=== PATIENT | male | born 1970 | race African-American/Black ===

== ENCOUNTER 2020-01-16 22:55 | Emergency (ER) | payer BC ==
[2020-01-16] MEDS ORDERED: KETOROLAC 30 MG/ML INJ ONE (23:48)
--- NOTE | 2020-01-17 00:06 | ER ---
Nurse's Notes [facility] Name: Santos Thurman Jr Age: 49 yrs Sex: Male : 1970 Arrival Date: 01/16/2020 Time: 22:58 Bed 18 Private MD: Diagnosis: Rotator cuff tendinitis, left shoulder Presentation: 01/15 23:05 Chief complaint: Patient states: L shoulder pain with decreased ROM that began 2 days ss ago. No known injury. Coronavirus screen: Proceed with normal triage. Patient denies a cough. Patient denies shortness of breath or difficulty breathing. Patient denies measured and/or subjective temperature greater than 100.4F prior to today's visit. Patient denies travel on a cruise ship or to a country the [facility] currently lists as an affected area. Patient denies contact with known and/or suspected case of COVID-19. Ebola Screen: Patient denies exposure to infectious person. Patient denies travel to an Ebola-affected area in the 21 days before illness onset. Initial Sepsis Screen: Does the patient meet any 2 criteria? No. Patient's initial sepsis screen is negative. Does the patient have a suspected source of infection? No. Patient's initial sepsis screen is negative. Risk Assessment: Do you want to hurt yourself or someone else? Patient reports no desire to harm self or others. Onset of symptoms was January 14, 2020. 23:05 Method Of Arrival: Ambulatory ss 23:05 Acuity: JASMINE 4 ss Triage Assessment: 23:15 General: Appears in no apparent distress. uncomfortable, Behavior is calm, cooperative, vc appropriate for age. Pain: Complains of pain in left shoulder Pain does not radiate. Pain currently is 8 out of 10 on a pain scale. Quality of pain is described as sharp, stabbing, Pain began gradually, Is continuous, Alleviated by rest, Aggravated by repositioning. Historical: - Allergies: 23:07 No Known Allergies; ss - Home Meds: 23:07 None [Active]; ss - PMHx: 23:08 sickle cell trait; ss - PSHx: 23:07 None; ss - Immunization history:: Adult Immunizations unknown. - Social history:: Smoking status: Patient denies any tobacco usage or history of. - Family history:: not pertinent. - Hospitalizations: : No recent hospitalization is reported. Screenin:15 Abuse screen: Denies threats or abuse. Nutritional screening: No deficits noted. vc Tuberculosis screening: No symptoms or risk factors identified. Fall Risk None identified. Assessment: 23:15 General: Appears in no apparent distress. comfortable, Behavior is calm, cooperative, vc appropriate for age. Neuro: Level of Consciousness is awake, alert, obeys commands, Oriented to person, place, time, situation, Appropriate for age. Cardiovascular: Capillary refill < 3 seconds Patient's skin is warm and dry. Respiratory: Airway is patent Respiratory effort is even, unlabored, Respiratory pattern is regular, symmetrical. GI: No signs and/or symptoms were reported involving the gastrointestinal system. : No signs and/or symptoms were reported regarding the genitourinary system. Derm: Skin is intact, is healthy with good turgor, Skin temperature is warm. Musculoskeletal: Circulation, motion, and sensation intact. Range of motion: limited in left shoulder. 01/16 00:15 Reassessment: Patient appears in no apparent distress at this time. Patient and/or vc family updated on plan of care and expected duration. Pain level reassessed. Patient is alert, oriented x 3, equal unlabored respirations, skin warm/dry/pink. Patient states symptoms have not improved. Vital Signs: 07 23:05 BP 122 / 87; Pulse 75; Resp 16; Temp 97.7(TE); Pulse Ox 98% on R/A; Weight 87.54 kg; ss Height 5 ft. 6 in. (167.64 cm); Pain 8/10; 23:05 Body Mass Index 31.15 (87.54 kg, 167.64 cm) ED Course: 22:58 Patient arrived in ED. cf2 23:07 Triage completed. ss 23:08 Arm band placed on right wrist. ss 23:16 Abraham Otto MD is Attending Physician. rn 23:27 Semea Bailey RN is Primary Nurse. vc 23:58 Shoulder Left (2 View) XRAY In Process Unspecified. EDMS 01/16 00:30 Patient has correct armband on for positive identification. Bed in low position. Call vc light in reach. Pulse ox on. NIBP on. 00:30 No provider procedures requiring assistance completed. Patient did not have IV access vc during this emergency room visit. 00:34 Sling applied to left arm. vc Administered Medications: 07/05 23:47 Drug: TORadol 30 mg Route: IM; Site: right deltoid; vc 01/16 00:15 Follow up: Response: No adverse reaction vc Outcome: 00:05 Discharge ordered by . rn 00:33 Discharged to home ambulatory. vc 00:33 Condition: good 00:33 Discharge instructions given to patient, Instructed on discharge instructions, follow up and referral plans. Demonstrated understanding of instructions, follow-up care. 00:34 Patient left the ED. vc Signatures: Dispatcher [employer] EDAbraham Rouse MD MD rn Smirch, Shelby, RN RN Ines Hart cf2 Seema Bailey RN RN vc
--- NOTE | 2020-01-17 00:06 | EDPHYS ---
Physician Documentation [facility] Name: Santos Thurman Jr Age: 49 yrs Sex: Male : 1970 Arrival Date: 01/16/2020 Time: 22:58 Bed 18 Private MD: ED Physician Abraham Otto HPI: 01/15 23:48 This 49 yrs old Black Male presents to ER via Ambulatory with complaints of Shoulder rn Pain, Arm Pain. 23:48 The patient or guardian complains of pain, that is acute. rn 23:48 left shoulder. Onset: The symptoms/episode began/occurred 2 day(s) ago. Modifying rn factors: the symptoms are alleviated by remaining still, The symptoms are aggravated by lifting weight, movement, rotation of arm. Severity of symptoms: At their worst the symptoms were moderate, in the emergency department the symptoms are unchanged. The patient has not experienced similar symptoms in the past. 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 No fever. No skin changes. . Historical: - Allergies: 23:07 No Known Allergies; ss - Home Meds: 23:07 None [Active]; ss - PMHx: 23:08 sickle cell trait; ss - PSHx: 23:07 None; ss - Immunization history:: Adult Immunizations unknown. - Social history:: Smoking status: Patient denies any tobacco usage or history of. - Family history:: not pertinent. - Hospitalizations: : No recent hospitalization is reported. ROS: 23:48 Constitutional: Negative for fever, chills, and weight loss, Cardiovascular: Negative rn for chest pain, palpitations, and edema, MS/Extremity: + left shoulder pain Skin: Negative for injury, rash, and discoloration, Neuro: Negative for headache, weakness, numbness, tingling, and seizure. Exam: 23:48 Constitutional: This is a well developed, well nourished patient who is awake, alert, rn and in no acute distress. Skin: Warm, dry with normal turgor. Normal color with no rashes, no lesions, and no evidence of cellulitis. MS/ Extremity: Pulses equal, no cyanosis. Neurovascular intact. + painful rotation about shoulder, + tenderness bicipital groove, no bony tenderness or gross deformity. Vital Signs: 23:05 BP 122 / 87; Pulse 75; Resp 16; Temp 97.7(TE); Pulse Ox 98% on R/A; Weight 87.54 kg; ss Height 5 ft. 6 in. (167.64 cm); Pain 8/10; 23:05 Body Mass Index 31.15 (87.54 kg, 167.64 cm) ss MDM: 23:16 Patient medically screened. rn 01/16 00:02 Differential diagnosis: tendonitis. Data reviewed: vital signs, nurses notes, rn radiologic studies, plain films, and as a result, I will discharge patient. Test interpretation: by ED physician or midlevel provider: plain radiologic studies, Xray left shoulder neg for acute fracture/dislocation. Counseling: I had a detailed discussion with the patient and/or guardian regarding: the historical points, exam findings, and any diagnostic results supporting the discharge/admit diagnosis, radiology results, the need for outpatient follow up, to return to the emergency department if symptoms worsen or persist or if there are any questions or concerns that arise at home. Response to treatment: the patient's symptoms have mildly improved after treatment, and as a result, I will discharge patient. Special discussion: I discussed with the patient/guardian in detail that at this point there is no indication for admission to the hospital. It is understood, however, that if the symptoms persist or worsen the patient needs to return immediately for re-evaluation. ED course: Pt with signs and symptoms of rotator cuff tendinitis, recommend rest and OTC meds. . 01/15 23:10 Order name: Shoulder Left (2 View) XRAY kb 01/16 00:06 Order name: Zuri; Complete Time: 00:32 rn Administered Medications: 01/15 23:47 Drug: TORadol 30 mg Route: IM; Site: right deltoid; vc 01/16 00:15 Follow up: Response: No adverse reaction vc Disposition: 01/17/20 00:05 Discharged to Home. Impression: Rotator cuff tendinitis, left shoulder. - Condition is Stable. - Discharge Instructions: Rotator Cuff Tendinitis. - Medication Reconciliation Form, Thank You Letter, Antibiotic Education, Prescription Opioid Use, Work release form form. - Follow up: Private Physician; When: As needed; Reason: Recheck today's complaints, Re-evaluation by your physician. - Problem is new. - Symptoms have improved. Signatures: Dispatcher [employer] EDAbraham oRuse MD MD rn Smirch, Shelby, RN RN ss Calcote, Vanessa, RN RN vc Corrections: (The following items were deleted from the chart) 00:34 00:05 01/17/2020 00:05 Discharged to Home. Impression: Rotator cuff tendinitis, left vc shoulder. Condition is Stable. Forms are Medication Reconciliation Form, Thank You Letter, Antibiotic Education, Prescription Opioid Use. Follow up: Private Physician; When: As needed; Reason: Recheck today's complaints, Re-evaluation by your physician. Problem is new. Symptoms have improved. rn
[2020-01-17 00:39] VITALS: BP 122/87; TEMP 97.7; O2SAT 98
--- NOTE | 2020-01-17 08:42 | RAD REPORT ---
EXAM DESCRIPTION: RAD - Shoulder Left 2 View - 01/16/2020 11:56 pm CLINICAL HISTORY: PAIN COMPARISON: No comparisons FINDINGS: Mild AC joint degenerative changes. No fracture or dislocation. Area of sclerosis and luce ncy seen along the humeral head superiorly may indicate AVN.
== END 2020-01-17 00:34 | disposition home or self-care (01) ==
LOC: ER 22:55
DX: S46.011A Strain of muscle(s) and tendon(s) of the rotator cuff of right shoulder, initial encounter (principal)
CPT/HCPCS: 96372; 99284

== ENCOUNTER 2020-01-30 21:54 | Emergency (ER) | payer BC ==
[2020-01-30] MEDS ORDERED: IBUPROFEN 400 MG TAB ONE (22:45)
--- NOTE | 2020-01-30 23:54 | ER ---
Nurse's Notes [facility] Name: Santos Thurman Jr Age: 49 yrs Sex: Male : 1970 Arrival Date: 01/30/2020 Time: 22:11 Bed 5 Private MD: Diagnosis: Pain in right knee Presentation: 01/29 22:23 Chief complaint: Patient states: Right knee pain since Friday, no known trauma. + ll1 swelling. Coronavirus screen: Patient denies a cough. Patient denies shortness of breath or difficulty breathing. Patient denies measured and/or subjective temperature greater than 100.4F prior to today's visit. Patient denies travel on a cruise ship or to a country the [facility] currently lists as an affected area. Patient denies contact with known and/or suspected case of COVID-19. Proceed with normal triage. Ebola Screen: Patient denies travel to an Ebola-affected area in the 21 days before illness onset. Initial Sepsis Screen: Does the patient meet any 2 criteria? No. Patient's initial sepsis screen is negative. Risk Assessment: Do you want to hurt yourself or someone else? Patient reports no desire to harm self or others. Onset of symptoms was January 28, 2020. 22:23 Method Of Arrival: Wheelchair ll1 22:23 Acuity: JASMINE 4 ll1 22:29 Initial Sepsis Screen: Does the patient have a suspected source of infection? No. rv Patient's initial sepsis screen is negative. Historical: - Allergies: 22:25 No Known Allergies; ll1 - PMHx: 22:25 Sickle Cell Trait; ll1 - PSHx: 22:25 None; ll1 - Immunization history:: Adult Immunizations unknown. - Social history:: Smoking status: Patient reports the use of cigarette tobacco products, smokes one-half pack cigarettes per day, Patient/guardian denies using alcohol, street drugs. Screenin:29 Abuse screen: Denies threats or abuse. Denies injuries from another. Nutritional rv screening: No deficits noted. Tuberculosis screening: No symptoms or risk factors identified. Fall Risk None identified. Assessment: 22:27 General: Appears uncomfortable, Behavior is calm, cooperative. Pain: Complains of pain rv in right knee. Neuro: Level of Consciousness is awake, alert, obeys commands, Oriented to person, place, time, situation. Cardiovascular: Patient's skin is warm and dry. Respiratory: Airway is patent. Musculoskeletal: Circulation, motion, and sensation intact. Range of motion: limited in right knee Swelling present in right knee WARM TO TOUCH; (+) TENDERNESS. Vital Signs: 22:23 BP 137 / 91; Pulse 80; Resp 17; Temp 98.3; Pulse Ox 100% ; Pain 10/10; ll1 01/30 00:04 BP 128 / 89; Pulse 76; Resp 16; Temp 98; Pulse Ox 99% on R/A; rv ED Course: 01/29 22:11 Patient arrived in ED. cf2 22:13 Harlan Boland PA is PHCP. cp 22:13 Brenton Ferrer MD is Attending Physician. cp 22:23 Reid Henderson, SHANEL is Primary Nurse. rv 22:24 Triage completed. ll1 22:25 Arm band placed on Patient placed in an exam room, on a stretcher. ll1 22:29 Patient has correct armband on for positive identification. Pulse ox on. NIBP on. rv 22:56 XRAY Knee RIGHT 3 view In Process Unspecified. EDMS 01/30 00:03 Crutch training done. Je wrap to right knee. rv 00:03 No provider procedures requiring assistance completed. Patient did not have IV access rv during this emergency room visit. Administered Medications: 01/29 22:38 Drug: Ibuprofen 800 mg Route: PO; rv 01/30 00:02 Follow up: Response: Pain is unchanged, physician notified rv 00:02 Drug: [place] (7.5 mg-325 mg) 1 tabs {Note: RASS 0.} Route: PO; rv 00:02 Follow up: Response: Medication administered at discharge. rv Outcome: 01/29 23:53 Discharge ordered by . cp 01/30 00:03 Discharged to home via wheelchair, with crutches, with family. rv Condition: good Discharge instructions given to patient, Instructed on discharge instructions, follow up and referral plans. medication usage, crutch walking, Demonstrated understanding of instructions, follow-up care, medications, crutch walking, Prescriptions given X 2. 00:04 Patient left the ED. rv Signatures: Dispatcher [employer] EDLA Harlan Boland PA PA cp Reid Henderson, RN RN rv Ines Hart cf2 Alden Lopez, RN RN ll1
--- NOTE | 2020-01-30 23:54 | EDPHYS ---
Physician Documentation [facility] Name: Santos Thurman Jr Age: 49 yrs Sex: Male : 1970 Arrival Date: 01/30/2020 Time: 22:11 Bed 5 Private MD: ED Physician Brenton Ferrer HPI: 01/29 22:34 This 49 yrs old Black Male presents to ER via Wheelchair with complaints of Knee Pain. cp 22:35 The patient presents with pain, that is acute, swelling, tenderness. The complaints cp affect the medial aspect of right knee. Context: resulted from an unknown cause, the patient can partially bear weight, the patient is able to ambulate, with moderate difficulty, Problem is a result from a previous injury: No. Onset: The symptoms/episode began/occurred 2 day(s) ago. 22:35 Associated signs and symptoms: Pertinent negatives calf tenderness, fever, numbness, cp warmth. Treatment prior to arrival includes: no previous treatment. Historical: - Allergies: 22:25 No Known Allergies; ll1 - PMHx: 22:25 Sickle Cell Trait; ll1 - PSHx: 22:25 None; ll1 - Immunization history:: Adult Immunizations unknown. - Social history:: Smoking status: Patient reports the use of cigarette tobacco products, smokes one-half pack cigarettes per day, Patient/guardian denies using alcohol, street drugs. ROS: 22:40 Constitutional: Negative for body aches, chills, fever, poor PO intake. cp 22:40 Eyes: Negative for injury, pain, redness, and discharge. cp 22:40 Cardiovascular: Negative for chest pain. 22:40 Respiratory: Negative for cough, shortness of breath, wheezing. 22:40 Abdomen/GI: Negative for abdominal pain, nausea, vomiting, and diarrhea. 22:40 MS/extremity: Positive for pain, swelling, tenderness, of the right knee, Negative for decreased range of motion, deformity, paresthesias. 22:40 Skin: Negative for cellulitis, rash. 22:40 All other systems are negative. Exam: 22:45 Constitutional: The patient appears in no acute distress, alert, awake, non-toxic, well cp developed, well nourished. 22:45 Head/Face: Normocephalic, atraumatic. cp 22:45 Neck: ROM/movement: is normal, is supple, without pain, no range of motions limitations. 22:45 Cardiovascular: Rate: normal. 22:45 Respiratory: the patient does not display signs of respiratory distress, Respirations: normal, no use of accessory muscles. 22:45 Back: pain, is absent, ROM is normal. 22:45 Musculoskeletal/extremity: ROM: limited active range of motion due to pain, in the right knee, limited passive range of motion due to pain, in the right knee, Joints: All joints are normal except the medial aspect of right knee displays painful range of motion, swelling, tenderness. 22:45 Skin: cellulitis, is not appreciated, no rash present. Vital Signs: 22:23 BP 137 / 91; Pulse 80; Resp 17; Temp 98.3; Pulse Ox 100% ; Pain 10/10; ll1 01/30 00:04 BP 128 / 89; Pulse 76; Resp 16; Temp 98; Pulse Ox 99% on R/A; rv Procedures: 00:00 Splinting: Splint applied to right knee using knee immobilizer, applied by nurse. cp Examined by me, post splint application: neurovascular intact, Patient tolerated well. MDM: 01/29 22:16 Patient medically screened. cp 23:00 Differential diagnosis: dislocation, closed fracture, tendonitis. cp 23:52 Data reviewed: vital signs, nurses notes, radiologic studies, plain films. cp 23:52 Test interpretation: by ED physician or midlevel provider: xrays of right knee negative cp for fracture. Counseling: I had a detailed discussion with the patient and/or guardian regarding: the historical points, exam findings, and any diagnostic results supporting the discharge/admit diagnosis, radiology results, the need for outpatient follow up, a family practitioner, to return to the emergency department if symptoms worsen or persist or if there are any questions or concerns that arise at home. Response to treatment: the patient's symptoms have mildly improved after treatment, and as a result, I will discharge patient. 01/29 22:33 Order name: XRAY Knee RIGHT 3 view cp 01/30 00:03 Order name: Je Wrap; Complete Time: 00:03 rv 01/30 00:03 Order name: Crutches; Complete Time: 00:03 rv Administered Medications: 22:38 Drug: Ibuprofen 800 mg Route: PO; rv 07/20 00:02 Follow up: Response: Pain is unchanged, physician notified rv 00:02 Drug: [place] (7.5 mg-325 mg) 1 tabs {Note: RASS 0.} Route: PO; rv 00:02 Follow up: Response: Medication administered at discharge. rv Disposition: 00:10 Chart complete. cp 07:23 Co-signature as Attending Physician, Brenton Ferrer MD. [email or web address] Disposition: 01/30/20 23:53 Discharged to Home. Impression: Pain in right knee. - Condition is Stable. - Discharge Instructions: Knee Pain. - Prescriptions for Tramadol 50 mg Oral Tablet - take 1 tablet by ORAL route every 8 hours as needed; 12 tablet. Diclofenac Sodium 75 mg Oral Tablet, Delayed Release (E.C.) - take 1 tablet by ORAL route 2 times per day; 20 tablet. - Medication Reconciliation Form, Thank You Letter, Antibiotic Education, Prescription Opioid Use form. - Follow up: Private Physician; When: 2 - 3 days; Reason: Recheck today's complaints. - Problem is new. - Symptoms have improved. Signatures: Dispatcher [employer] EDMS Harlan Boland PA PA cp Reid Henderson RN RN Alden Lopez RN RN [facility] Brenton Ferrer MD MD [email or web address] Corrections: (The following items were deleted from the chart) 00:04 01/29 23:53 01/30/2020 23:53 Discharged to Home. Impression: Pain in right knee. rv Condition is Stable. Forms are Medication Reconciliation Form, Thank You Letter, Antibiotic Education, Prescription Opioid Use. Follow up: Private Physician; When: 2 - 3 days; Reason: Recheck today's complaints. Problem is new. Symptoms have improved. cp 01/30 11:17 01/29 23:00 Splinting: Splint applied to right knee using knee immobilizer, applied by cp nurse. Examined by me, post splint application: neurovascular intact, Patient tolerated well, cp
[2020-01-30] MEDS ORDERED: HYDROCODONE/APAP 7.5/325 MG TAB ONE (23:57)
[2020-01-31 00:43] VITALS: BP 128/89; TEMP 98; O2SAT 99
--- NOTE | 2020-01-31 08:14 | RAD REPORT ---
EXAM DESCRIPTION: RAD - Knee Right 3 View - 01/30/2020 10:55 pm CLINICAL HISTORY: Right knee pain FINDINGS: No fracture or dislocation is seen. Mild joint space narrowing medial compartment Moderate joint effusion present Mildly heterogeneous appearance involving the distal femur may be related to sickle cell. Follow-up x -ray in 2 months recommended for re-evaluation
== END 2020-01-31 00:04 | disposition home or self-care (01) ==
LOC: ER 21:54
DX: M25.561 Pain in right knee (principal); F17.210 Nicotine dependence, cigarettes, uncomplicated
CPT/HCPCS: 99284

== ENCOUNTER 2020-03-07 11:30 | Emergency (ER) | payer BC ==
[2020-03-07] MEDS ORDERED: IBUPROFEN 400 MG TAB ONE (12:21)
--- NOTE | 2020-03-07 12:32 | RAD REPORT ---
EXAM DESCRIPTION: RAD - Knee Left 3 View - 03/07/2020 12:23 pm CLINICAL HISTORY: Left knee pain FINDINGS: No fracture or dislocation is seen. Moderate joint effusion suspected Mild medial joint space narrowing 18 millimeter vague area sclerosis within the proximal tibia likely benign. It is recommended that th e patient have followup knee x-ray in 3 months to assess stability
--- NOTE | 2020-03-07 13:19 | EDPHYS ---
Physician Documentation [facility] Name: Santos Thurman Jr Age: 49 yrs Sex: Male : 1970 Arrival Date: 03/07/2020 Time: 11:35 Bed 8 Private MD: ED Physician Harlan Pelaez HPI: 03/07 13:12 This 49 yrs old Black Male presents to ER via Wheelchair with complaints of Knee Pain. anny 13:12 The patient presents with decreased range of motion, pain, swelling, tenderness. The anny complaints affect the left knee. Context: The problem was sustained at an unknown site, resulted from an unknown cause, the patient can partially bear weight. Onset: The symptoms/episode began/occurred 2 day(s) ago. Modifying factors: The symptoms are alleviated by elevating leg, remaining still, the symptoms are aggravated by movement, weight bearing, bending knee. Associated signs and symptoms: The patient has no apparent associated signs or symptoms. Treatment prior to arrival includes: no previous treatment, over the counter medications. Severity of symptoms: At their worst the symptoms were moderate, in the emergency department the symptoms are unchanged. The patient has experienced similar episodes in the past, a few times. Historical: - Allergies: 11:39 No Known Allergies; ll1 - PMHx: 11:39 Sickle Cell Trait; ll1 - PSHx: 11:39 None; ll1 - Immunization history:: Flu vaccine is not up to date. - Social history:: Smoking status: Patient reports the use of cigarette tobacco products, denies chronic smoking, but will smoke occasionally, Patient/guardian denies using alcohol, street drugs. - Family history:: not pertinent. ROS: 13:12 Constitutional: Negative for fever, chills, and weight loss, Eyes: Negative for injury, anny pain, redness, and discharge, ENT: Negative for injury, pain, and discharge, Neck: Negative for injury, pain, and swelling, Cardiovascular: Negative for chest pain, palpitations, and edema, Respiratory: Negative for shortness of breath, cough, wheezing, and pleuritic chest pain, Abdomen/GI: Negative for abdominal pain, nausea, vomiting, diarrhea, and constipation, Back: Negative for injury and pain, : Negative for injury, bleeding, discharge, and swelling, Skin: Negative for injury, rash, and discoloration, Neuro: Negative for headache, weakness, numbness, tingling, and seizure, Psych: Negative for depression, anxiety, suicide ideation, homicidal ideation, and hallucinations, Allergy/Immunology: Negative for hives, rash, and allergies, Endocrine: Negative for neck swelling, polydipsia, polyuria, polyphagia, and marked weight changes, Hematologic/Lymphatic: Negative for swollen nodes, abnormal bleeding, and unusual bruising. 13:12 MS/extremity: Positive for decreased range of motion, pain, swelling, tenderness, of the left knee. Exam: 13:12 Constitutional: This is a well developed, well nourished patient who is awake, alert, anny and in no acute distress. Head/Face: Normocephalic, atraumatic. Eyes: Pupils equal round and reactive to light, extra-ocular motions intact. Lids and lashes normal. Conjunctiva and sclera are non-icteric and not injected. Cornea within normal limits. Periorbital areas with no swelling, redness, or edema. ENT: Nares patent. No nasal discharge, no septal abnormalities noted. Tympanic membranes are normal and external auditory canals are clear. Oropharynx with no redness, swelling, or masses, exudates, or evidence of obstruction, uvula midline. Mucous membranes moist. Neck: Trachea midline, no thyromegaly or masses palpated, and no cervical lymphadenopathy. Supple, full range of motion without nuchal rigidity, or vertebral point tenderness. No Meningismus. Chest/axilla: Normal chest wall appearance and motion. Nontender with no deformity. No lesions are appreciated. Cardiovascular: Regular rate and rhythm with a normal S1 and S2. No gallops, murmurs, or rubs. Normal PMI, no JVD. No pulse deficits. Respiratory: Lungs have equal breath sounds bilaterally, clear to auscultation and percussion. No rales, rhonchi or wheezes noted. No increased work of breathing, no retractions or nasal flaring. Abdomen/GI: Soft, non-tender, with normal bowel sounds. No distension or tympany. No guarding or rebound. No evidence of tenderness throughout. Back: No spinal tenderness. No costovertebral tenderness. Full range of motion. Male : Normal genitalia with no discharge or lesions. Skin: Warm, dry with normal turgor. Normal color with no rashes, no lesions, and no evidence of cellulitis. Neuro: Awake and alert, GCS 15, oriented to person, place, time, and situation. Cranial nerves II-XII grossly intact. Motor strength 5/5 in all extremities. Sensory grossly intact. Cerebellar exam normal. Normal gait. Psych: Awake, alert, with orientation to person, place and time. Behavior, mood, and affect are within normal limits. 13:12 Musculoskeletal/extremity: ROM: limited active range of motion, limited passive range of motion, Circulation is intact in all extremities. Sensation intact. Compartment Syndrome exam of affected extremity: is normal. Joints: effusion, painful range of motion, swelling, Weight bearing: DVT Exam: negative Homans' sign noted on exam, no appreciated bluish discoloration, no erythema, no increased warmth, pain, swelling, tenderness. Vital Signs: 11:40 BP 120 / 73; Pulse 85; Resp 17; Temp 98.9; Pulse Ox 100% ; Weight 87.54 kg; Height 5 ll1 ft. 6 in. (167.64 cm); Pain 10/10; 13:35 BP 125 / 86; Pulse 82; Resp 18; Temp 97.9(O); Pulse Ox 100% on R/A; mh5 14:34 BP 129 / 84; Pulse 78; Resp 18; Temp 97.9; Pulse Ox 100% on R/A; ph 11:40 Body Mass Index 31.15 (87.54 kg, 167.64 cm) ll1 Procedures: 13:22 Joint Treatment: Aspiration of left using 18 gauge needle, Lidocaine, Removed clear anny fluid, yellow fluid, Dressed with band aid, Neosporin, Patient tolerated well. MDM: 11:43 Patient medically screened. anny 13:16 Data reviewed: vital signs, nurses notes, radiologic studies, plain films. anny 13:20 Differential diagnosis: closed fracture, contusion, tendonitis. Data interpreted: city hospital manager monitoring: not applicable for this patient encounter. Pulse oximetry: on room air is 100 %. Test interpretation: by ED physician or midlevel provider: plain radiologic studies. Counseling: I had a detailed discussion with the patient and/or guardian regarding: the historical points, exam findings, and any diagnostic results supporting the discharge/admit diagnosis, the need for outpatient follow up, for definitive care, a orthopedic surgeon. Medication response: ibuprofen administration has improved the patient's pain, norco . Response to treatment: the patient's symptoms have markedly improved after treatment, patient is well hydrated. Other consultation: follow up dr hurst. 03/07 13:28 Order name: Fluid Cell Count,Body bd 03/07 13:28 Order name: Crystals, Fluid bd 03/07 13:35 Order name: Miscellaneous Test Lab [facility] 03/07 13:35 Order name: Body Fluid Culture [facility] 03/07 11:57 Order name: Knee Left [facility] 03/07 11:57 Order name: Ice pack; Complete Time: 12:21 [facility] 03/07 13:12 Order name: Knee Immobilizer; Complete Time: 13:26 [facility] 03/07 13:12 Order name: Crutches; Complete Time: 13:26 [facility] 03/07 13:24 Order name: Wound dressing; Complete Time: 14:14 [facility] Administered Medications: 12:21 Drug: Motrin 800 mg Route: PO; ph 13:06 Follow up: Response: No adverse reaction ph 13:26 Drug: [place] 10 mg-325 mg 1 tabs Route: PO; em 14:14 Follow up: Response: No adverse reaction; Pain is decreased ph 13:55 Drug: Lidocaine-Epinephrine -2 % (1:100,000) 10 ml Route: Infiltration; ph 14:41 Follow up: Response: No adverse reaction ph 14:15 Drug: KeFLEX 500 mg Route: PO; ph 14:39 Follow up: Response: No adverse reaction ph Disposition: 03/07/20 13:19 Discharged to Home. Impression: Effusion, left knee, Pain in left knee. - Condition is Stable. - Discharge Instructions: Joint Pain, Knee Effusion, Knee Arthrocentesis, Knee Pain, Cryotherapy, [id number], Knee Effusion, [id number], Cryotherapy. - Prescriptions for Keflex 500 mg Oral Capsule - take 1 capsule by ORAL route every 6 hours for 7 days; 28 capsule. Tylenol- Codeine #3 300-30 mg Oral Tablet - take 2 tablet by ORAL route every 6 hours As needed; 30 tablet. Motrin IB 200 mg Oral Tablet - take 1 tablet by ORAL route every 6 hours As needed as needed with food; 40 tablet. - Medication Reconciliation Form, Thank You Letter, Antibiotic Education, Prescription Opioid Use form. - Follow up: Private Physician; When: 2 - 3 days; Reason: Recheck today's complaints, Continuance of care, Re-evaluation by your physician. Follow up: Clayton Hurst MD; When: 2 - 3 days; Reason: Recheck today's complaints, Continuance of care, Re-evaluation by your physician. - Problem is new. - Symptoms have improved. Signatures: Dispatcher [employer] EDHarlan Barrios MD MD cha Munoz, Edgar RN RN Traci Carrington RN RN Alden Lopez RN RN ll1 Corrections: (The following items were deleted from the chart) 13:35 13:35 Gram Stain ordered. EDMD EDMS 14:27 13:28 LACTIC DEHYDROGENASE+C.LAB.BRZ ordered. [facility] EDMS 14:41 13:19 03/07/2020 13:19 Discharged to Home. Impression: Effusion, left knee; Pain in ph left knee. Condition is Stable. Forms are Medication Reconciliation Form, Thank You Letter, Antibiotic Education, Prescription Opioid Use. Follow up: Private Physician; When: 2 - 3 days; Reason: Recheck today's complaints, Continuance of care, Re-evaluation by your physician. Follow up: Clayton Hurst; When: 2 - 3 days; Reason: Recheck today's complaints, Continuance of care, Re-evaluation by your physician. Problem is new. Symptoms have improved. anny
--- NOTE | 2020-03-07 13:19 | ER ---
Nurse's Notes [facility] Name: Santos Thurman Jr Age: 49 yrs Sex: Male : 1970 Arrival Date: 03/07/2020 Time: 11:35 Bed 8 Private MD: Diagnosis: Effusion, left knee;Pain in left knee Presentation: 03/07 11:40 Chief complaint: Patient states: Left knee pain for 3 days. No trauma. No fever. ll1 Coronavirus screen: Client denies travel out of the [place] in the last 14 days. At this time, the client does not indicate any symptoms associated with coronavirus-19. Ebola Screen: Patient denies travel to an Ebola-affected area in the 21 days before illness onset. Risk Assessment: Do you want to hurt yourself or someone else? Patient reports no desire to harm self or others. Onset of symptoms was March 05, 2020. 11:40 Method Of Arrival: Wheelchair ll1 11:40 Acuity: JASMINE 4 ll1 12:23 Initial Sepsis Screen: Does the patient meet any 2 criteria? No. Patient's initial ph sepsis screen is negative. Does the patient have a suspected source of infection? No. Patient's initial sepsis screen is negative. Historical: - Allergies: 11:39 No Known Allergies; ll1 - PMHx: 11:39 Sickle Cell Trait; ll1 - PSHx: 11:39 None; ll1 - Immunization history:: Flu vaccine is not up to date. - Social history:: Smoking status: Patient reports the use of cigarette tobacco products, denies chronic smoking, but will smoke occasionally, Patient/guardian denies using alcohol, street drugs. - Family history:: not pertinent. Screenin:22 Abuse screen: Denies threats or abuse. Denies injuries from another. Nutritional ph screening: No deficits noted. Tuberculosis screening: No symptoms or risk factors identified. Fall Risk None identified. Assessment: 12:22 General: Appears in no apparent distress. comfortable, well groomed, Behavior is calm, ph cooperative, appropriate for age. Pain: Complains of pain in left knee. Neuro: Level of Consciousness is awake, alert, obeys commands, Oriented to person, place, time, situation. Cardiovascular: Capillary refill < 3 seconds in bilateral fingers toes Patient's skin is warm and dry. Respiratory: Airway is patent Respiratory effort is even, unlabored. Derm: Skin is intact, is healthy with good turgor, Skin is pink, warm \T\ dry. 13:27 Reassessment: Patient appears in no apparent distress at this time. will be discharged em after knee aspiration, pending procedure. 14:00 Reassessment: Patient appears in no apparent distress at this time. Patient and/or ph family updated on plan of care and expected duration. Pain level reassessed. Patient is alert, oriented x 3, equal unlabored respirations, skin warm/dry/pink. Dr Pelaez at bedside to drain fluid from L knee, sent to lab for testing per ERP. Vital Signs: 11:40 BP 120 / 73; Pulse 85; Resp 17; Temp 98.9; Pulse Ox 100% ; Weight 87.54 kg; Height 5 ll1 ft. 6 in. (167.64 cm); Pain 10/10; 13:35 BP 125 / 86; Pulse 82; Resp 18; Temp 97.9(O); Pulse Ox 100% on R/A; mh5 14:34 BP 129 / 84; Pulse 78; Resp 18; Temp 97.9; Pulse Ox 100% on R/A; ph 11:40 Body Mass Index 31.15 (87.54 kg, 167.64 cm) ll1 ED Course: 11:35 Patient arrived in ED. mr 11:41 Triage completed. ll1 11:41 Arm band placed on Patient placed in an exam room, on a stretcher. ll1 11:43 Harlan Pelaez MD is Attending Physician. anny 11:58 Traci Carrington RN is Primary Nurse. ph 12:23 Knee Left 3 View XRAY In Process Unspecified. EDMS 12:23 Patient has correct armband on for positive identification. Bed in low position. Call ph light in reach. Side rails up X 1. 12:29 No provider procedures requiring assistance completed. Patient did not have IV access ph during this emergency room visit. 13:17 Clayton Hurst MD is Referral Physician. anny 13:31 Crutch training done. Knee immobilizer applied on right knee. 5 14:00 Assist provider with aspiration of left knee using 18 gauge needle, Lidocaine, fluid ph removed was cloudy, yellow, Specimen sent to lab. Removed 60 ml's of fluid Set up for procedure. Performed by Harlan Pelaez MD Dressed with band aid, Patient tolerated well. Administered Medications: 12:21 Drug: Motrin 800 mg Route: PO; ph 13:06 Follow up: Response: No adverse reaction ph 13:26 Drug: [place] 10 mg-325 mg 1 tabs Route: PO; em 14:14 Follow up: Response: No adverse reaction; Pain is decreased ph 13:55 Drug: Lidocaine-Epinephrine -2 % (1:100,000) 10 ml Route: Infiltration; ph 14:41 Follow up: Response: No adverse reaction ph 14:15 Drug: KeFLEX 500 mg Route: PO; ph 14:39 Follow up: Response: No adverse reaction ph Outcome: 13:19 Discharge ordered by . [facility] 14:38 Discharged to home via wheelchair. ph 14:38 Condition: good 14:39 Discharge instructions given to patient, Instructed on discharge instructions, follow ph up and referral plans. medication usage, Demonstrated understanding of instructions, follow-up care, medications, Prescriptions given X 3. 14:41 Patient left the ED. ph Signatures: Dispatcher [employer] Harlan Leija MD MD cha Rivera, Mary Vic Saha, RN RN Traci Cross RN RN Yaritza Alvarez [facility] Alden Lopez RN RN ll1 Corrections: (The following items were deleted from the chart) 14:39 14:38 Discharged to home ambulatory, ph ph
[2020-03-07] MEDS ORDERED: HYDROCODONE/APAP 10/325 TAB ONE (13:28)
[2020-03-07] MEDS ORDERED: LIDOCAINE 1% W/EPI 1:100,000 MDV 20 ML VIAL ONE (13:32)
[2020-03-07] MEDS ORDERED: CEPHALEXIN 250 MG CAP ONE (13:50)
[2020-03-07 15:24] LABS: Body Fluid Source SYNOVIAL; Color of fluid Yellow (COLORLESS)
[2020-03-07 17:21] LABS: Body Fluid WBC 37806 /mm^3
[2020-03-07 17:28] LABS: Appearance VERY TURBID (CLEAR)
[2020-03-11 14:12] VITALS: O2SAT 100
[2020-03-11 14:14] VITALS: TEMP 97.9
[2020-03-11 14:16] VITALS: BP 129/84
== END 2020-03-07 14:41 | disposition home or self-care (01) ==
LOC: ER 11:30
PROC: 0S9D3ZZ Drainage of Left Knee Joint, Percutaneous Approach (ICD-10-PCS; principal; 2020-03-07)
DX: M25.562 Pain in left knee (principal); M25.462 Effusion, left knee; F17.210 Nicotine dependence, cigarettes, uncomplicated
CPT/HCPCS: 36415; 87070; 89050; 89060; 99284

== ENCOUNTER 2020-04-04 07:48 | Emergency (ER) | payer BC ==
--- NOTE | 2020-04-04 08:20 | EDPHYS ---
Physician Documentation [facility] Name: Santos Thurman Jr Age: 49 yrs Sex: Male : 1970 Arrival Date: 04/04/2020 Time: 07:50 Bed 6 Private MD: ED Physician Abraham Otto HPI: 04/04 08:15 This 49 yrs old Black Male presents to ER via Ambulatory with complaints of Hand Pain. rn 08:15 The patient or guardian reports pain. The complaints affect the right hand diffusely. rn Onset: The symptoms/episode began/occurred several months ago. Modifying factors: The symptoms are alleviated by nothing, the symptoms are aggravated by nothing. Severity of symptoms: At their worst the symptoms were moderate, in the emergency department the symptoms are unchanged. The patient has experienced similar episodes in the past. Reports happening on and off "for some time". Denies injury. Began happening again at work today, sent home after ibuprofen didn't help. Reports right handed, worse at nighttime. No fever or infectious symptoms. . Historical: - Allergies: 08:07 No Known Allergies; hb - PMHx: 08:07 Sickle Cell Trait; hb - PSHx: 08:07 None; hb - Immunization history:: Adult Immunizations up to date. - Social history:: Smoking status: Patient reports the use of cigarette tobacco products, denies chronic smoking, but will smoke occasionally. - Family history:: not pertinent. - Hospitalizations: : No recent hospitalization is reported. ROS: 08:15 Constitutional: Negative for fever, chills, and weight loss, Cardiovascular: Negative rn for chest pain, palpitations, and edema, Respiratory: Negative for shortness of breath, cough, wheezing, and pleuritic chest pain, Abdomen/GI: Negative for abdominal pain, nausea, vomiting, diarrhea, and constipation, MS/Extremity: Negative for injury and deformity, Neuro: Negative for headache, weakness, and seizure. Exam: 08:15 Constitutional: This is a well developed, well nourished patient who is awake, alert, rn and in no acute distress. MS/ Extremity: Pulses equal, no cyanosis. Neurovascular intact. Full, normal range of motion. Equal circumference. + worsening of symptoms with hyperflexion of right wrist. No erythema/warmth/wounds. Fingers not fusiform or painful ROM. Vital Signs: 08:05 BP 123 / 91; Pulse 89; Resp 16; Temp 97.8; Pulse Ox 100% ; Weight 88.45 kg; Height 5 hb ft. 6 in. (167.64 cm); Pain 9/10; 08:05 Body Mass Index 31.47 (88.45 kg, 167.64 cm) hb MDM: 08:01 Patient medically screened. rn 08:15 Differential diagnosis: carpal tunnel syndrome. Data reviewed: vital signs, nurses rn notes. 08:15 Counseling: I had a detailed discussion with the patient and/or guardian regarding: the rn historical points, exam findings, and any diagnostic results supporting the discharge/admit diagnosis, the need for outpatient follow up, to return to the emergency department if symptoms worsen or persist or if there are any questions or concerns that arise at home. Special discussion: I discussed with the patient/guardian in detail that at this point there is no indication for admission to the hospital. It is understood, however, that if the symptoms persist or worsen the patient needs to return immediately for re-evaluation. Based on the history and exam findings, there is no indication for further emergent testing or inpatient evaluation. I discussed with the patient/guardian the need to see the hand specialist for further evaluation of the symptoms. 04/04 08:20 Order name: Wrist Splint: cock-up wrist splint right wrist; Complete Time: 08:40 rn Administered Medications: 08:33 Drug: predniSONE 60 mg Route: PO; tw2 08:41 Follow up: Response: No adverse reaction tw2 08:33 Drug: [place] 10 mg-325 mg 1 tabs Route: PO; tw2 08:40 Follow up: Response: No adverse reaction tw2 08:41 Follow up: Response: No adverse reaction; RASS: Alert and Calm (0) tw2 Disposition: 04/04/20 08:19 Discharged to Home. Impression: Carpal tunnel syndrome, right upper limb. - Condition is Stable. - Discharge Instructions: Carpal Tunnel Syndrome, Wrist Splint. - Prescriptions for Medrol (David) 4 mg Oral Tablets, Dose Pack - take 1 tablet by ORAL route as directed - follow package instructions; 1 packet. - Medication Reconciliation Form, Thank You Letter, Antibiotic Education, Prescription Opioid Use form. - Follow up: Robert Singer MD; When: As needed; Reason: Recheck today's complaints, Re-evaluation by your physician. - Problem is an ongoing problem. - Symptoms have improved. Signatures: Abraham Otto MD MD rn Baxter, Heather, RN RN Dang Ramos RN RN tw2 Corrections: (The following items were deleted from the chart) 08:41 08:19 04/04/2020 08:19 Discharged to Home. Impression: Carpal tunnel syndrome, right tw2 upper limb. Condition is Stable. Forms are Medication Reconciliation Form, Thank You Letter, Antibiotic Education, Prescription Opioid Use. Follow up: Robert Singer; When: As needed; Reason: Recheck today's complaints, Re-evaluation by your physician. Problem is an ongoing problem. Symptoms have improved. rn
--- NOTE | 2020-04-04 08:20 | ER ---
Nurse's Notes [facility] Name: Santos Thurman Jr Age: 49 yrs Sex: Male : 1970 Arrival Date: 04/04/2020 Time: 07:50 Bed 6 Private MD: Diagnosis: Carpal tunnel syndrome, right upper limb Presentation: 04/04 08:05 Chief complaint: Right hand pain since last night. Denies injury. Coronavirus screen: hb At this time, the client does not indicate any symptoms associated with coronavirus-19. Ebola Screen: No symptoms or risks identified at this time. Initial Sepsis Screen: Does the patient meet any 2 criteria? No. Patient's initial sepsis screen is negative. Does the patient have a suspected source of infection? No. Patient's initial sepsis screen is negative. Risk Assessment: Do you want to hurt yourself or someone else? Patient reports no desire to harm self or others. Onset of symptoms was April 03, 2020. 08:05 Method Of Arrival: Ambulatory hb 08:05 Acuity: JASMINE 4 hb Triage Assessment: 08:05 General: Appears in no apparent distress. Behavior is calm, cooperative, appropriate tw2 for age. Historical: - Allergies: 08:07 No Known Allergies; hb - PMHx: 08:07 Sickle Cell Trait; hb - PSHx: 08:07 None; hb - Immunization history:: Adult Immunizations up to date. - Social history:: Smoking status: Patient reports the use of cigarette tobacco products, denies chronic smoking, but will smoke occasionally. - Family history:: not pertinent. - Hospitalizations: : No recent hospitalization is reported. Screenin:37 Abuse screen: Denies threats or abuse. Nutritional screening: No deficits noted. tw2 Tuberculosis screening: No symptoms or risk factors identified. Fall Risk None identified. Assessment: 08:04 Reassessment: provider at bedside at this time. tw2 08:05 General: Appears in no apparent distress. Behavior is calm, cooperative, appropriate tw2 for age. Pain: Complains of pain in right hand. Neuro: Level of Consciousness is awake, alert, obeys commands, Oriented to person, place, time, situation. Cardiovascular: Capillary refill < 3 seconds Patient's skin is warm and dry. Respiratory: Airway is patent Respiratory effort is even, unlabored, Respiratory pattern is regular, symmetrical. Derm: No signs and/or symptoms reported regarding the dermatologic system. Musculoskeletal: Circulation, motion, and sensation intact. Range of motion: intact in all extremities, Reports pain in right hand. 08:41 Reassessment: Patient appears in no apparent distress at this time. No changes from tw2 previously documented assessment. Patient and/or family updated on plan of care and expected duration. Pain level reassessed. Patient is alert, oriented x 3, equal unlabored respirations, skin warm/dry/pink. Vital Signs: 08:05 BP 123 / 91; Pulse 89; Resp 16; Temp 97.8; Pulse Ox 100% ; Weight 88.45 kg; Height 5 hb ft. 6 in. (167.64 cm); Pain 9/10; 08:05 Body Mass Index 31.47 (88.45 kg, 167.64 cm) hb ED Course: 07:50 Patient arrived in ED. ds1 08:01 Abraham Otto MD is Attending Physician. rn 08:03 Bed in low position. Call light in reach. Adult w/ patient. Pulse ox on. NIBP on. tw2 08:04 Dang Ramos RN is Primary Nurse. tw2 08:07 Triage completed. hb 08:07 Arm band placed on. EKG completed in triage. Results shown to MD. EKG completed in triage. Results shown to MD. 08:19 Robert Singer MD is Referral Physician. rn 08:41 No provider procedures requiring assistance completed. Patient did not have IV access tw2 during this emergency room visit. Administered Medications: 08:33 Drug: predniSONE 60 mg Route: PO; tw2 08:41 Follow up: Response: No adverse reaction tw2 08:33 Drug: [place] 10 mg-325 mg 1 tabs Route: PO; tw2 08:40 Follow up: Response: No adverse reaction tw2 08:41 Follow up: Response: No adverse reaction; RASS: Alert and Calm (0) tw2 Outcome: 08:19 Discharge ordered by . rn 08:41 Discharged to home ambulatory, with significant other. tw2 08:41 Condition: stable 08:41 Discharge instructions given to patient, significant other, Instructed on discharge instructions, follow up and referral plans. medication usage, Demonstrated understanding of instructions, follow-up care, medications, Prescriptions given X 1. 08:41 Patient left the ED. tw2 Signatures: Courtney Arenas ds1 Abraham Otto MD MD rn Halley Anderson, SHANEL RN hb Dang Ramos RN RN tw2
[2020-04-04] MEDS ORDERED: predniSONE 20 MG TAB ONE (08:40)
[2020-04-04] MEDS ORDERED: HYDROCODONE/APAP 10/325 TAB ONE (08:40)
[2020-04-04 08:47] VITALS: BP 123/91; TEMP 97.8; O2SAT 100
== END 2020-04-04 08:41 | disposition home or self-care (01) ==
LOC: ER 07:48
DX: G56.01 Carpal tunnel syndrome, right upper limb (principal); F17.210 Nicotine dependence, cigarettes, uncomplicated
CPT/HCPCS: 99283; J7512

== ENCOUNTER 2020-05-17 02:32 | Emergency (ER) | payer BC ==
--- NOTE | 2020-05-17 03:10 | ER ---
Nurse's Notes [facility] Name: Santos Thurman Jr Age: 49 yrs Sex: Male : 1970 Arrival Date: 05/17/2020 Time: 02:33 Bed 6 Private MD: Diagnosis: Pain in right shoulder;Strain of muscle(s) and tendon(s) of the rotator cuff of right shoulder Presentation: 05/17 02:52 Chief complaint: Patient states: right shoulder pain that started yesterday. Pt states wh Hx of torn rotator cuff on right shoulder. Coronavirus screen: Client denies travel out of the [place] in the last 14 days. At this time, the client does not indicate any symptoms associated with coronavirus-19. Ebola Screen: Patient negative for fever greater than or equal to 101.5 degrees Fahrenheit, and additional compatible Ebola Virus Disease symptoms Patient denies exposure to infectious person. Initial Sepsis Screen: Does the patient meet any 2 criteria? No. Patient's initial sepsis screen is negative. Does the patient have a suspected source of infection? No. Patient's initial sepsis screen is negative. Risk Assessment: Do you want to hurt yourself or someone else? Patient reports no desire to harm self or others. Onset of symptoms was May 17, 2020. 02:52 Method Of Arrival: Ambulatory 02:52 Acuity: JASMINE 4 Historical: - Allergies: 02:54 No Known Allergies; - Home Meds: 02:54 None [Active]; - PMHx: 02:54 Sickle Cell Trait; - PSHx: 02:54 None; - Immunization history:: Adult Immunizations not up to date. - Social history:: Smoking status: Patient reports the use of cigarette tobacco products, denies chronic smoking, but will smoke occasionally. - Family history:: not pertinent. Screenin:55 Abuse screen: Denies threats or abuse. Denies injuries from another. Nutritional screening: No deficits noted. Tuberculosis screening: No symptoms or risk factors identified. Fall Risk None identified. Assessment: 02:55 General: Appears in no apparent distress. uncomfortable, Behavior is calm, cooperative, wh appropriate for age. Pain: Complains of pain in right shoulder Pain does not radiate. Pain currently is 9 out of 10 on a pain scale. Pain began 1 day ago. Neuro: Level of Consciousness is awake, alert, obeys commands, Oriented to person, place, time, situation, Appropriate for age. Cardiovascular: Capillary refill < 3 seconds. Respiratory: Airway is patent Respiratory effort is even, unlabored, Respiratory pattern is regular, symmetrical. GI: Abdomen is flat, non-distended. : No signs and/or symptoms were reported regarding the genitourinary system. EENT: No signs and/or symptoms were reported regarding the EENT system. Derm: Skin is intact, is healthy with good turgor, Skin is pink, warm \T\ dry. normal. Musculoskeletal: Circulation, motion, and sensation intact. Range of motion: limited in right shoulder. Vital Signs: 02:42 BP 107 / 73; Pulse 65; Resp 19 S; Temp 98.5(O); Pulse Ox 100% on R/A; mw2 ED Course: 02:33 Patient arrived in ED. cl3 02:48 Randy Chang PA is PHCP. jr8 02:49 Harlan Pelaez MD is Attending Physician. anny 02:51 Rui New is Primary Nurse. 02:53 Triage completed. 02:57 Arm band placed on right wrist. wh 02:57 Patient has correct armband on for positive identification. Bed in low position. Call light in reach. Side rails up X 1. Pulse ox on. NIBP on. 03:09 Clayton Hurst MD is Referral Physician. anny 03:18 No provider procedures requiring assistance completed. Patient did not have IV access during this emergency room visit. 03:31 XRAY Shoulder RIGHT 2 view In Process Unspecified. EDMS Administered Medications: 03:10 Drug: TORadol 60 mg Route: IM; Site: right gluteus; 03:18 Follow up: Response: No adverse reaction 03:10 Drug: [place] 10 mg-325 mg 1 tabs Route: PO; 03:18 Follow up: Response: No adverse reaction Outcome: 03:09 Discharge ordered by . anny 03:18 Discharged to home ambulatory, with family. 03:18 Condition: stable 03:18 Discharge instructions given to patient, family, Instructed on discharge instructions, follow up and referral plans. no drinking with medication, no driving heavy equipment, medication usage, POC Demonstrated understanding of instructions, follow-up care, medications, splint care, POC Prescriptions given X 2. 03:26 Patient left the ED. Signatures: Dispatcher [employer] EDMS Harlan Pelaez MD MD cha Roszak, Josh, PA PA jr8 Rui New Tala Silva mw2 Yunier Lopez cl3 Corrections: (The following items were deleted from the chart) 02:57 02:55 Musculoskeletal: Circulation, motion, and sensation intact. [facility]
--- NOTE | 2020-05-17 03:11 | EDPHYS ---
Physician Documentation [facility] Name: Santos Thurman Jr Age: 49 yrs Sex: Male : 1970 Arrival Date: 05/17/2020 Time: 02:33 Bed 6 Private MD: SCOTT Physician Harlan Pelaez HPI: 05/17 03:00 This 49 yrs old Black Male presents to ER via Ambulatory with complaints of Shoulder anny Pain. 03:00 The patient or guardian complains of decreased range of motion, pain, tenderness. right anny shoulder. Context: The problem was sustained at work, at an unknown site, resulted from repetitive motion, The patient experiences decreased range of motion, The patient reports no obvious deformity. Onset: The symptoms/episode began/occurred just prior to arrival. Modifying factors: the symptoms are alleviated by remaining still, The symptoms are aggravated by movement, rotation of arm. Associated signs and symptoms: The patient has no apparent associated signs or symptoms. Severity of symptoms: At their worst the symptoms were moderate, in the emergency department the symptoms are unchanged. Treatment prior to arrival includes: no previous treatment. The patient has experienced similar episodes in the past. Historical: - Allergies: 02:54 No Known Allergies; - Home Meds: 02:54 None [Active]; - PMHx: 02:54 Sickle Cell Trait; - PSHx: 02:54 None; - Immunization history:: Adult Immunizations not up to date. - Social history:: Smoking status: Patient reports the use of cigarette tobacco products, denies chronic smoking, but will smoke occasionally. - Family history:: not pertinent. ROS: 03:00 Constitutional: Negative for fever, chills, and weight loss, Eyes: Negative for injury, anny pain, redness, and discharge, ENT: Negative for injury, pain, and discharge, Neck: Negative for injury, pain, and swelling, Cardiovascular: Negative for chest pain, palpitations, and edema, Respiratory: Negative for shortness of breath, cough, wheezing, and pleuritic chest pain, Abdomen/GI: Negative for abdominal pain, nausea, vomiting, diarrhea, and constipation, Back: Negative for injury and pain, : Negative for injury, bleeding, discharge, and swelling, Skin: Negative for injury, rash, and discoloration, Neuro: Negative for headache, weakness, numbness, tingling, and seizure, Psych: Negative for depression, anxiety, suicide ideation, homicidal ideation, and hallucinations, Allergy/Immunology: Negative for hives, rash, and allergies, Endocrine: Negative for neck swelling, polydipsia, polyuria, polyphagia, and marked weight changes, Hematologic/Lymphatic: Negative for swollen nodes, abnormal bleeding, and unusual bruising. 03:00 MS/extremity: Positive for decreased range of motion, pain, tenderness, of the anterior aspect of right shoulder and posterior aspect of right shoulder. Exam: 03:00 Constitutional: This is a well developed, well nourished patient who is awake, alert, anny and in no acute distress. Head/Face: Normocephalic, atraumatic. Eyes: Pupils equal round and reactive to light, extra-ocular motions intact. Lids and lashes normal. Conjunctiva and sclera are non-icteric and not injected. Cornea within normal limits. Periorbital areas with no swelling, redness, or edema. ENT: Nares patent. No nasal discharge, no septal abnormalities noted. Tympanic membranes are normal and external auditory canals are clear. Oropharynx with no redness, swelling, or masses, exudates, or evidence of obstruction, uvula midline. Mucous membranes moist. Neck: Trachea midline, no thyromegaly or masses palpated, and no cervical lymphadenopathy. Supple, full range of motion without nuchal rigidity, or vertebral point tenderness. No Meningismus. Chest/axilla: Normal chest wall appearance and motion. Nontender with no deformity. No lesions are appreciated. Cardiovascular: Regular rate and rhythm with a normal S1 and S2. No gallops, murmurs, or rubs. Normal PMI, no JVD. No pulse deficits. Respiratory: Lungs have equal breath sounds bilaterally, clear to auscultation and percussion. No rales, rhonchi or wheezes noted. No increased work of breathing, no retractions or nasal flaring. Abdomen/GI: Soft, non-tender, with normal bowel sounds. No distension or tympany. No guarding or rebound. No evidence of tenderness throughout. Back: No spinal tenderness. No costovertebral tenderness. Full range of motion. Male : Normal genitalia with no discharge or lesions. Skin: Warm, dry with normal turgor. Normal color with no rashes, no lesions, and no evidence of cellulitis. Neuro: Awake and alert, GCS 15, oriented to person, place, time, and situation. Cranial nerves II-XII grossly intact. Motor strength 5/5 in all extremities. Sensory grossly intact. Cerebellar exam normal. Normal gait. Psych: Awake, alert, with orientation to person, place and time. Behavior, mood, and affect are within normal limits. 03:00 Musculoskeletal/extremity: Extremities: noted in the anterior aspect of left shoulder and posterior aspect of left shoulder: decreased ROM, pain, tenderness, ROM: limited active range of motion, limited passive range of motion, Circulation is intact in all extremities. Sensation intact. Compartment Syndrome exam of affected extremity: is normal. no pain, no numbness, no tingling, no sensation deficit, no palor, no weak pulses, DVT Exam: no swelling, negative Homans' sign noted on exam, no appreciated bluish discoloration, no erythema, no increased warmth, pain, tenderness. Vital Signs: 02:42 BP 107 / 73; Pulse 65; Resp 19 S; Temp 98.5(O); Pulse Ox 100% on R/A; mw2 MDM: 02:48 Patient medically screened. jr8 02:49 Patient medically screened. anny 03:05 Differential diagnosis: Anterior dislocation without fracture, Posterior dislocation anyn without fracture, DJD, tendonitis. Data reviewed: vital signs, nurses notes, radiologic studies, plain films. Data interpreted: gambling monitor: rate is 65 beats/min, rhythm is regular, Pulse oximetry: on room air is 100 %. Test interpretation: by ED physician or midlevel provider: plain radiologic studies. Counseling: I had a detailed discussion with the patient and/or guardian regarding: the historical points, exam findings, and any diagnostic results supporting the discharge/admit diagnosis, radiology results, the need for outpatient follow up, for definitive care, a orthopedic surgeon. Medication response: Toradol markedly relieved the patient's pain. 05/17 02:52 Order name: XRAY Shoulder RIGHT 2 view 05/17 02:54 Order name: Ice pack; Complete Time: 03:13 anny 05/17 02:54 Order name: Sling; Complete Time: 03:13 anny Administered Medications: 03:10 Drug: TORadol 60 mg Route: IM; Site: right gluteus; 03:18 Follow up: Response: No adverse reaction 03:10 Drug: [place] 10 mg-325 mg 1 tabs Route: PO; 03:18 Follow up: Response: No adverse reaction Disposition: 05/17/20 03:09 Discharged to Home. Impression: Pain in right shoulder, Strain of muscle(s) and tendon(s) of the rotator cuff of right shoulder. - Condition is Stable. - Discharge Instructions: Joint Pain, Arthritis, Musculoskeletal Pain, Shoulder Pain, Cryotherapy, [id number], Shoulder Range of Motion Exercises, Shoulder Pain, Onzk-hr-Rbcm, Cryotherapy, Joint Pain, Kyip-yp-Hnqw. - Prescriptions for Ibuprofen 600 mg Oral Tablet - take 1 tablet by ORAL route every 6 hours As needed take with food; 20 tablet. Tylenol- Codeine #3 300-30 mg Oral Tablet - take 2 tablets by ORAL route every 6 hours As needed; 26 tablet. - Work release form, Medication Reconciliation Form, Thank You Letter, Antibiotic Education, Prescription Opioid Use form. - Follow up: Private Physician; When: 2 - 3 days; Reason: Recheck today's complaints, Continuance of care, Re-evaluation by your physician. Follow up: Clayton Hurst; When: 2 - 3 days; Reason: Recheck today's complaints, Continuance of care, Re-evaluation by your physician. - Problem is new. - Symptoms have improved. Signatures: Dispatcher [employer] EDMS Harlan Pelaez MD MD cha Roszak, Josh, PA PA jr8 Rui New Corrections: (The following items were deleted from the chart) 03:26 03:09 05/17/2020 03:09 Discharged to Home. Impression: Pain in right shoulder; Strain wh of muscle(s) and tendon(s) of the rotator cuff of right shoulder. Condition is Stable. Discharge Instructions: Joint Pain, Arthritis, Musculoskeletal Pain, Shoulder Pain, Cryotherapy, Lqhp-[id number]-Vdqt, Shoulder Range of Motion Exercises, Shoulder Pain, Tsvg-nh-Bbte, Cryotherapy, Joint Pain, Hdif-nj-Fisv. Prescriptions for Ibuprofen 600 mg Oral Tablet - take 1 tablet by ORAL route every 6 hours As needed take with food; 20 tablet, Tylenol-Codeine #3 300-30 mg Oral Tablet - take 2 tablets by ORAL route every 6 hours As needed; 26 tablet. and Forms are Medication Reconciliation Form, Thank You Letter, Antibiotic Education, Prescription Opioid Use. Follow up: Private Physician; When: 2 - 3 days; Reason: Recheck today's complaints, Continuance of care, Re-evaluation by your physician. Follow up: Clayton Hurst; When: 2 - 3 days; Reason: Recheck today's complaints, Continuance of care, Re-evaluation by your physician. Problem is new. Symptoms have improved. anny
[2020-05-17] MEDS ORDERED: HYDROCODONE/APAP 10/325 TAB ONE (03:16)
[2020-05-17] MEDS ORDERED: KETOROLAC 30 MG/ML INJ ONE (03:17)
[2020-05-17 03:34] VITALS: BP 107/73; TEMP 98.5; O2SAT 100
--- NOTE | 2020-05-17 07:13 | RAD REPORT ---
EXAM DESCRIPTION: Shoulder Right 2 View - 05/17/2020 3:31 am CLINICAL HISTORY: PAIN COMPARISON: No comparisons TECHNIQUE: Internal and external rotation views of the right shoulder were obtained. FINDINGS: There is no fracture or dislocation. AC joint is normal in appearance. Acromial humeral j oint space is normal range. No abnormal soft tissue calcifications. IMPRESSION: Negative two-view right shoulder examination.
== END 2020-05-17 03:26 | disposition home or self-care (01) ==
LOC: ER 02:32
DX: S46.011A Strain of muscle(s) and tendon(s) of the rotator cuff of right shoulder, initial encounter (principal); X50.3XXA Overexertion from repetitive movements, initial encounter; Y93.9 Activity, unspecified; Y92.89 Other specified places as the place of occurrence of the external cause; Y99.8 Other external cause status; F17.210 Nicotine dependence, cigarettes, uncomplicated
CPT/HCPCS: 96372; 99284

== ENCOUNTER 2020-06-13 16:10 | Emergency (ER) | payer BC ==
[2020-06-13] MEDS ORDERED: HYDROCODONE/APAP 10/325 TAB ONE (17:13)
[2020-06-13] MEDS ORDERED: dexAMETHasone 4 MG TAB ONE (17:14)
--- NOTE | 2020-06-14 04:11 | EDPHYS ---
Physician Documentation [facility] Name: Santos Thurman Jr Age: 49 yrs Sex: Male : 1970 Arrival Date: 06/13/2020 Time: 16:11 Bed 4 Private MD: Harlan Barbosa HPI: 06/13 17:06 This 49 yrs old Black Male presents to ER via Ambulatory with complaints of Hand Pain. snw 17:06 The patient or guardian reports decreased range of motion, pain. The complaints affect snw the left hand diffusely. Context: The problem was sustained at work, resulted from a repetitive motion, twisting. Onset: The symptoms/episode began/occurred gradually, and became worse today. Associated signs and symptoms: The patient has no apparent associated signs or symptoms. Severity of symptoms: At their worst the symptoms were moderate, severe. The patient has experienced a previous episode. It is unknown whether or not the patient has recently seen a physician. Historical: - Allergies: 16:17 No Known Allergies; vg1 - PMHx: 16:17 Sickle Cell Trait; vg1 - PSHx: 16:17 None; vg1 - Immunization history:: Adult Immunizations up to date, Flu vaccine is not up to date. - Social history:: Smoking status: Patient reports the use of cigarette tobacco products, denies chronic smoking, but will smoke occasionally. ROS: 17:06 Constitutional: Negative for fever, chills, and weight loss, Eyes: Negative for injury, snw pain, redness, and discharge, ENT: Negative for injury, pain, and discharge, Neck: Negative for injury, pain, and swelling, Cardiovascular: Negative for chest pain, palpitations, and edema, Respiratory: Negative for shortness of breath, cough, wheezing, and pleuritic chest pain, Abdomen/GI: Negative for abdominal pain, nausea, vomiting, diarrhea, and constipation, Back: Negative for injury and pain, : Negative for injury, bleeding, discharge, and swelling, Skin: Negative for injury, rash, and discoloration, Neuro: Negative for headache, weakness, numbness, tingling, and seizure, Psych: Negative for depression, anxiety, suicide ideation, homicidal ideation, and hallucinations. 17:06 MS/extremity: Positive for decreased range of motion, pain, of the lateral aspect of left hand and medial aspect of left hand. Exam: 17:04 Constitutional: This is a well developed, well nourished patient who is awake, alert, snw and in no acute distress. Head/Face: Normocephalic, atraumatic. Eyes: Pupils equal round and reactive to light, extra-ocular motions intact. Lids and lashes normal. Conjunctiva and sclera are non-icteric and not injected. Cornea within normal limits. Periorbital areas with no swelling, redness, or edema. ENT: Nares patent. No nasal discharge, no septal abnormalities noted. Tympanic membranes are normal and external auditory canals are clear. Oropharynx with no redness, swelling, or masses, exudates, or evidence of obstruction, uvula midline. Mucous membranes moist. Neck: Trachea midline, no thyromegaly or masses palpated, and no cervical lymphadenopathy. Supple, full range of motion without nuchal rigidity, or vertebral point tenderness. No Meningismus. Chest/axilla: Normal chest wall appearance and motion. Nontender with no deformity. No lesions are appreciated. Cardiovascular: Regular rate and rhythm with a normal S1 and S2. No gallops, murmurs, or rubs. Normal PMI, no JVD. No pulse deficits. Respiratory: Lungs have equal breath sounds bilaterally, clear to auscultation and percussion. No rales, rhonchi or wheezes noted. No increased work of breathing, no retractions or nasal flaring. Abdomen/GI: Soft, non-tender, with normal bowel sounds. No distension or tympany. No guarding or rebound. No evidence of tenderness throughout. Back: No spinal tenderness. No costovertebral tenderness. Full range of motion. Skin: Warm, dry with normal turgor. Normal color with no rashes, no lesions, and no evidence of cellulitis. MS/ Extremity: Pulses equal, no cyanosis. Neurovascular intact. Full, normal range of motion with pain Neuro: Awake and alert, GCS 15, oriented to person, place, time, and situation. Cranial nerves II-XII grossly intact. Motor strength 5/5 in all extremities. Sensory grossly intact. Cerebellar exam normal. Normal gait. Psych: Awake, alert, with orientation to person, place and time. Behavior, mood, and affect are within normal limits. Vital Signs: 16:12 BP 137 / 115; Pulse 82; Resp 18; Temp 97.0; Pulse Ox 100% on R/A; Weight 90.72 kg; vg1 Height 5 ft. 6 in. (167.64 cm); Pain 10/10; 17:09 BP 129 / 97; Pulse 81; Resp 17; Pulse Ox 99% on R/A; tw2 16:12 Body Mass Index 32.28 (90.72 kg, 167.64 cm) vg1 MDM: 16:49 Patient medically screened. [facility] 17:03 Data reviewed: vital signs, nurses notes. Counseling: I had a detailed discussion with snw the patient and/or guardian regarding: the historical points, exam findings, and any diagnostic results supporting the discharge/admit diagnosis, the presence of at least one elevated blood pressure reading (>120/80) during this emergency department visit, the need for outpatient follow up, to return to the emergency department if symptoms worsen or persist or if there are any questions or concerns that arise at home. Special discussion: I have referred the patient to see his PCP for further evaluation of high blood pressure. Based on the history and exam findings, there is no indication for further emergent testing or inpatient evaluation. I discussed with the patient/guardian the need to see the orthopedic surgeon for further evaluation of the symptoms. I discussed with the patient/guardian the need to see the primary care provider for further evaluation of the symptoms. 06/13 16:55 Order name: Wrist Splint; Complete Time: 17:14 snw Administered Medications: 17:05 Drug: Decadron 8 mg Route: PO; tw2 17:15 Follow up: Response: No adverse reaction tw2 17:05 Drug: [place] 10 mg-325 mg 1 tabs {Note: RASS 0.} Route: PO; tw2 17:14 Follow up: Response: No adverse reaction; Pain is unchanged, physician notified; Pain tw2 is unchanged, medication given at discharge Disposition: 06/14 07:48 Co-signature as Attending Physician, Harlan Pelaez MD I agree with the assessment and [facility] plan of care. Disposition: 06/13/20 16:59 Discharged to Home. Impression: Carpal tunnel syndrome, left upper limb. - Condition is Stable. - Discharge Instructions: Carpal Tunnel Syndrome, RICE for Routine Care of Injuries, Wrist Splint. - Prescriptions for Mobic 7.5 mg Oral Tablet - take 1 tablet by ORAL route once daily take with food; 20 tablet. - Medication Reconciliation Form, Thank You Letter, Antibiotic Education, Prescription Opioid Use, Work release form form. - Follow up: Emergency Department; When: As needed; Reason: Worsening of condition. Follow up: Clayton Hurst MD; When: 1 week; Reason: Recheck today's complaints, Continuance of care. Signatures: Harlan Pelaez MD MD cha Waters, Shelly, FITTER/WELDER-C FITTER/WELDER-Csnw Dang Ramos, RN RN tw2 Mel Seymour RN RN vg1 Corrections: (The following items were deleted from the chart) 06/13 17:16 16:59 06/13/2020 16:59 Discharged to Home. Impression: Carpal tunnel syndrome, left tw2 upper limb. Condition is Stable. Forms are Medication Reconciliation Form, Thank You Letter, Antibiotic Education, Prescription Opioid Use. Follow up: Emergency Department; When: As needed; Reason: Worsening of condition. Follow up: Clayton Hurst; When: 1 week; Reason: Recheck today's complaints, Continuance of care. snw
--- NOTE | 2020-06-14 04:11 | ER ---
Nurse's Notes [facility] Name: Santos Thurman Jr Age: 49 yrs Sex: Male : 1970 Arrival Date: 06/13/2020 Time: 16:11 Bed 4 Private MD: Diagnosis: Carpal tunnel syndrome, left upper limb Presentation: 06/13 16:12 Chief complaint: Patient states: Was at work and left hand began to hurt, happened vg1 about an hour ago. Patient stated had xrays done but cant remember when they were done and it was stated that he may have 'carpel tunnel'. Patient denies injury. Coronavirus screen: Client denies travel out of the [place] in the last 14 days. At this time, the client does not indicate any symptoms associated with coronavirus-19. Ebola Screen: Patient negative for fever greater than or equal to 101.5 degrees Fahrenheit, and additional compatible Ebola Virus Disease symptoms. Initial Sepsis Screen: Does the patient meet any 2 criteria? No. Patient's initial sepsis screen is negative. Does the patient have a suspected source of infection? No. Patient's initial sepsis screen is negative. Risk Assessment: Do you want to hurt yourself or someone else? Patient reports no desire to harm self or others. Onset of symptoms was June 13, 2020. 16:12 Method Of Arrival: Ambulatory vg1 16:12 Acuity: JASMINE 3 vg1 Historical: - Allergies: 16:17 No Known Allergies; vg1 - PMHx: 16:17 Sickle Cell Trait; vg1 - PSHx: 16:17 None; vg1 - Immunization history:: Adult Immunizations up to date, Flu vaccine is not up to date. - Social history:: Smoking status: Patient reports the use of cigarette tobacco products, denies chronic smoking, but will smoke occasionally. Screenin:45 Abuse screen: Denies threats or abuse. Nutritional screening: No deficits noted. tw2 Tuberculosis screening: No symptoms or risk factors identified. Fall Risk None identified. Assessment: 16:42 General: Appears in no apparent distress. uncomfortable, Behavior is calm, cooperative, tw2 appropriate for age. Pain: Complains of pain in left hand. Neuro: Level of Consciousness is awake, alert, obeys commands, Oriented to person, place, time, situation. Cardiovascular: Patient's skin is warm and dry. Respiratory: Airway is patent Respiratory effort is even, unlabored, Respiratory pattern is regular, symmetrical. GI: No signs and/or symptoms were reported involving the gastrointestinal system. : No signs and/or symptoms were reported regarding the genitourinary system. EENT: No signs and/or symptoms were reported regarding the EENT system. Derm: No signs and/or symptoms reported regarding the dermatologic system. Musculoskeletal: Circulation, motion, and sensation intact. Reports pain in left hand. 17:09 Reassessment: Patient appears in no apparent distress at this time. No changes from tw2 previously documented assessment. Patient and/or family updated on plan of care and expected duration. Pain level reassessed. Patient is alert, oriented x 3, equal unlabored respirations, skin warm/dry/pink. Vital Signs: 16:12 BP 137 / 115; Pulse 82; Resp 18; Temp 97.0; Pulse Ox 100% on R/A; Weight 90.72 kg; vg1 Height 5 ft. 6 in. (167.64 cm); Pain 10/10; 17:09 BP 129 / 97; Pulse 81; Resp 17; Pulse Ox 99% on R/A; tw2 16:12 Body Mass Index 32.28 (90.72 kg, 167.64 cm) vg1 ED Course: 16:11 Patient arrived in ED. ag5 16:16 Triage completed. vg1 16:18 Arm band placed on. vg1 16:43 Marilyn Gamez FNP-C is [facility]. snw 16:43 Harlan Pelaez MD is Attending Physician. snw 16:44 Dang Ramos RN is Primary Nurse. tw2 16:45 Bed in low position. Call light in reach. Adult w/ patient. Pulse ox on. NIBP on. tw2 16:56 Clayton Hurst MD is Referral Physician. snw 17:15 No provider procedures requiring assistance completed. Patient did not have IV access tw2 during this emergency room visit. Administered Medications: 17:05 Drug: Decadron 8 mg Route: PO; tw2 17:15 Follow up: Response: No adverse reaction tw2 17:05 Drug: [place] 10 mg-325 mg 1 tabs {Note: RASS 0.} Route: PO; tw2 17:14 Follow up: Response: No adverse reaction; Pain is unchanged, physician notified; Pain tw2 is unchanged, medication given at discharge Outcome: 16:59 Discharge ordered by . snw 17:15 Discharged to home ambulatory, with significant other. tw2 17:15 Condition: stable 17:15 Discharge instructions given to patient, significant other, Instructed on discharge instructions, follow up and referral plans. medication usage, CMS checks Demonstrated understanding of instructions, follow-up care, medications, splint care, Prescriptions given X 1. 17:16 Patient left the ED. tw2 Signatures: Marilyn Gamez, SECURITY INFRASTRUCTURE ENGINEER-C SECURITY INFRASTRUCTURE ENGINEER-Csnw Dang Ramos, RN RN tw2 Stefano Hilton ag5 Mel Seymour, RN RN vg1
== END 2020-06-13 17:16 | disposition home or self-care (01) ==
LOC: ER 16:10
DX: G56.02 Carpal tunnel syndrome, left upper limb (principal); F17.210 Nicotine dependence, cigarettes, uncomplicated
CPT/HCPCS: 99283; J8540

== ENCOUNTER 2020-08-14 21:20 | Emergency (ER) | payer BC ==
--- OUTSIDE RECORDS SUMMARY | 2020-08-14 21:23 | XMS REPORT | Summary of Care ---
:1970 Author Organization [facility] Address [address] [place] [address] Care Team Providers Name Role Phone Pcp, Patient Does Not Have A Primary Care Provider +1-000-00 0-0000 Reason for Visit Reason Comments LAB Encounter Details Date Type Department Care Team Description 06/29/2020 Candy Cutter Machine Visit [facility] Darnell Lyon MD [address] [place] [address] [place] [address] Bilateral hand pain Professional Office 2, [facility] Lab Building Phlebotomy Lab Professional Office Building [address] [place] [address] , [address] [place] [address] Allergies No Known Allergiesdocumented as of this encounter (statuses as of 06/29/2020) Medications Medication Sig Dispensed Refills Start Date End Date Status acetaminophen-codeine TAKE 2 TABLETS 0 05/17/2020 Active 300-30 mg tablet BY MOUTH EVERY 6 HOURS NEEDED FOR PAIN cyclobenzaprine 10 mg TAKE 1 TABLET 0 04/06/2020 Active tablet BY MOUTH AT BEDTIME NEEDED FOR MUSCLE SPASMS ferrous sulfate 324 mg Take 324 mg by 0 04/10/2020 Active (65 mg iron) EC tablet mouth daily. ibuprofen 600 mg tablet TAKE 1 TABLET 0 05/17/2020 Active BY MOUTH EVERY 6 HOURS NEEDED FOR PAIN TAKE WITH FOOD meloxicam 7.5 mg tablet TAKE 1 TABLET 0 06/14/2020 Active BY MOUTH EVERY DAY WITH FOOD methylPREDNISolone 4 mg TAKE BY MOUTH 0 04/04/2020 Active tablets DIRECTED documented as of this encounter (statuses as of 06/29/2020) Active Problems Not on filedocumented as of this encounter (statuses as of 06/29/2020) Social History Tobacco Use Types Packs/Day Years Used Date Current Some Day Smoker Smokeless Tobacco: Never Used Sex Assigned at Date Recorded Not on file COVID-19 Exposure Response Date Recorded In the last month, have you been in contact with No / Unsure 06/29/2020 7:58 AM OUTREACH DIRECTOR someone who was confirmed or suspected to have Coronavirus / COVID-19? documented as of this encounter Last Filed Vital Signs Not on filedocumented in this encounter Nursing Notes Madeleine Frazier - 06/29/2020 9:00 AM CST Venipuncture collection performed by clean technique on the right anticubitus. Total of 1 attempts were made. Slight pressure and a bandage/dressing were applied to the site(s). The patient experiencedno complications. The following specimens were processed according to instructions and sent to [facility] laboratories per lab order on 06/29/20: LT BLUE SST 4 RED LAV 1 PPT DK GREEN (LiHep) DK GREEN (SodH) SULLIVAN DK BLUE (K2) DK BLUE (S) ACD Blood Culture NIPT/NTD documented in this encounter Plan of Treatment Date Type Specialty Care Team Description 07/04/2020 Office Visit Orthopedic Surgery Vipul Finn S, PAC [facility] [phone] Health Maintenance Due Date Last Done Comments Depression Screening 1981 DTaP,Tdap,and Td Vaccines (1 - 1988 Tdap) COLON CANCER SCREENING ANNUAL 12/15/2019 FIT/FOBT COLON CANCER SCREENING FIT DNA 12/15/2019 EVERY 3 YEARS COLON CANCER SCREENING 12/15/2019 SIGMOIDOSCOPY EVERY 5 YEARS COLONOSCOPY 12/15/2019 Colorectal Cancer Screening 12/15/2019 Zoster Recombinant Vaccine 12/15/2019 (SHINGRIX) (1 of 2) INFLUENZA VACCINE (#1) 2020 PNEUMOCOCCAL 0-64 YEARS COMBINED Aged Out No longer eligible based on SERIES patient's age to complete this topic documented as of this encounter Results Not on filedocumented in this encounter Visit Diagnoses Diagnosis Bilateral hand pain Pain in limb documented in this encounter Insurance Payer Benefit Plan Subscriber ID Effective Dates Phone Address Type / Group BCBS [id number] 2019-Alisa [phone] [address] PPO/POS [place] - OUT OF t 7 [id number] [place] [address] documented as of this encounter
--- OUTSIDE RECORDS SUMMARY | 2020-08-14 21:23 | XMS REPORT | Continuity of Care Document ---
:1970 Author Organization [facility] Address [address] [place] [address] Care Team Providers Name Role Phone David Sanon Attending Clinician Doctor Unassigned, Name Attending Clinician Unavailable Problems This patient has no known problems. Allergies, Adverse Reactions, Alerts This patient has no known allergies or adverse reactions. Medications This patient has no known medications. Procedures This patient has no known procedures. Encounters Start End Encounter Admission Attending Care Care Encounter Source Date/Time Date/Time Type Type Clinicians Facility Department ID 2020-07-04 2020-07-04 Office CHASE Finn [id number] 08:08:02 08:23:02 Visit [facility] [id number] Surgical [id number] Specialti [id number] [address] 2020-06-29 2020-06-29 Orders Doctor ESTHER [id number] 00:00:00 00:00:00 Only UnassignedPARTH [id number] [place] [facility] [id number] Results This patient has no known results.
--- OUTSIDE RECORDS SUMMARY | 2020-08-14 21:23 | XMS REPORT | Summary of Care ---
:1970 Author Organization [facility] Address [address] [place] [address] Care Team Providers Name Role Phone Pcp, Patient Does Not Have A Primary Care Provider +1-000-00 0-0000 Reason for Visit Reason Comments New Patient Hand Pain bilateral hand pain Encounter Details Date Type Department Care Team Description 06/29/2020 Office Visit [facility] Orthopaedic Darnell Lyon ilateral hand pain Surgery- Shefali Maxwell MD (Primary Dx) [address], [address] [place] [place] [address] [place], [place] [phone] Allergies No Known Allergiesdocumented as of this [...] with No / Unsure 06/29/2020 7:58 AM [facility] P[facility] T[facility]NER someone who was confirmed or suspected to have Coronavirus / COVID-19? documented as of this encounter Last Filed Vital Signs Vital Sign Reading Time Taken Comments Blood Pressure 131/86 06/29/2020 8:06 AM FOUNTAIN PEN TURNER Pulse 83 06/29/2020 8:06 AM FOUNTAIN PEN TURNER Temperature - - Respiratory Rate - - Oxygen Saturation - - Inhaled Oxygen Concentration - - Weight 90.7 kg (200 lb) 06/29/2020 8:06 AM FOUNTAIN PEN TURNER Height 167.6 cm (5' 6") 06/29/2020 8:06 AM [facility]OUNT[facility] P[facility]NER Body Mass Index 32.28 06/29/2020 8:06 AM FOUNTAIN PEN TURNER documented in this encounter Progress Notes Darnell Lyon MD - 06/29/2020 8:00 AM CST Cc: Chief Complaint Patient presents with New Patient Hand Pain Left hand pain New patient Bilateral hand numbness, tingling, and pain. Injury mechanism: none DOI: Pain started back in March of 2020 Santos Thurman is a 49 year old male. Hand Pain The incident occurred more than 1 week ago. The incident occurred at home. There was no injury mechanism. The pain is present in the left hand, left wrist, right hand and right wrist. The quality of the pain is described as aching, burning, shooting and stabbing. The pain is at a severity of 8/10. Thepain is moderate. The pain has been worsening since the incident. Associated symptoms include muscleweakness, numbness and tingling. The symptoms are aggravated by lifting, movement and palpation. He has tried weight bearing, rest and NSAIDs for the symptoms. The treatment provided no relief. Allergies Santos has No Known Allergies. Medications Outpatient Medications Prior to Visit Medication Sig Dispense Refill acetaminophen-codeine 300-30 mg tablet TAKE 2 TABLETS BY MOUTH EVERY 6 HOURS NEEDED FOR PAIN cyclobenzaprine 10 mg tablet TAKE 1 TABLET BY MOUTH AT BEDTIME NEEDED FOR MUSCLE SPASMS ferrous sulfate 324 mg (65 mg iron) EC tablet Take 324 mg by mouth daily. ibuprofen 600 mg tablet TAKE 1 TABLET BY MOUTH EVERY 6 HOURS NEEDED FOR PAIN TAKE WITH FOOD meloxicam 7.5 mg tablet TAKE 1 TABLET BY MOUTH EVERY DAY WITH FOOD methylPREDNISolone 4 mg tablets TAKE BY MOUTH DIRECTED No facility-administered medications prior to visit. Histories No past medical history on file. No past surgical history on file. Social History Socioeconomic History Marital status: Spouse name: Not on file Number of children: Not on file Years of education: Not on file Highest education level: Not on file Occupational History Not on file Social Needs Financial resource strain: Not on file Food insecurity Worry: Not on file Inability: Not on file Transportation needs Medical: Not on file Non-medical: Not on file Tobacco Use Smoking status: Current Some Day Smoker Smokeless tobacco: Never Used Substance and Sexual Activity Alcohol use: Not on file Drug use: Not on file Sexual activity: Not on file Lifestyle Physical activity Days per week: Not on file Minutes per session: Not on file Stress: Not on file Relationships Social connections Talks on phone: Not on file Gets together: Not on file Attends taoist service: Not on file Active member of club or organization: Not on file Attends meetings of clubs or organizations: Not on file Relationship status: Not on file Intimate partner violence Fear of current or ex partner: Not on file Emotionally abused: Not on file Physically abused: Not on file Forced sexual activity: Not on file Other Topics Concern Not on file Social History Narrative Not on file No family history on file. Review of Systems Constitutional: Negative. HENT: Negative. Eyes: Negative. Respiratory: Negative. Breasts: Negative. Cardiovascular: Negative. Gastrointestinal: Negative. Genitourinary: Negative. Musculoskeletal: Positive for joint swelling. Skin: Negative. Neurological: Positive for tingling and numbness. Psychiatric/Behavioral: Negative. Endocrine: Endocrine negative Vital Signs Ht 66" (167.6 cm) | Wt 90.7 kg (200 lb) | BMI 32.28 kg/m Physical Exam Musculoskeletal: Comments: General: Well-developed well-nourished oriented to person place and time HEENT normocephalic atraumatic atraumatic pupils equal round reactive to light extraocular muscles intact Cervical thoracic and lumbar spine without focal deficit normal kyphosis and lordosis Chest clear to auscultation and percussion Cardiovascular regular rate and rhythm without gallop rub or murmur soft without organomegaly Normal bowel sounds Neurologic: Focal myotome or dermatomal deficits Vascular: Intact symmetrical bilateral upper and lower extremities Skin without stasis varicosities or breakdown Extremities without cyanosis clubbing or edema Lymphatics no peripheral lymphedema Psych normal mood and affect. Neurovascular function is intact. To include brisk capillary refill warm pink skin active motor function and sensory function intact. Assessment/Plan Bilateral hand/wrist pain EMG of the BUE - Follow up within ten days of the procedure for results. RA Profile - Follow up 1 week for results documented in this encounter Plan of Treatment Date Type Specialty Care Team Description 07/04/2020 Office Visit Orthopedic Surgery Vipul Finn S, PAC [address] [place] [phone] Name Type Priority Associated Diagnoses Date/Ti me ANTI-NUCLEAR ANTIBODY LAB Routine Bilateral hand pain 06/29/2020 8:56 AM [facility] SCREEN C-REACTIVE PROTEIN LAB Routine Bilateral hand pain 8:56 AM [facility] RHEUMATOID FACTOR LAB Routine Bilateral hand pain 8:56 AM [facility] STREPTOLYSIN O ANTIBODY LAB Routine Bilateral hand pa in 06/29/2020 8:56 AM [facility]OUNTAIN PEN TURNER (ASO) Name Type Priority Associated Diagnoses Order S chedule ANTI-NUCLEAR ANTIBODY LAB Routine Bilateral hand pain 1 Occurrences starting SCREEN 06/29/2020 unti l 06/29/2021 C-REACTIVE PROTEIN LAB Routine Bilateral hand pain 1 Occurrences starting 06/29/2020 unti l 06/29/2021 RHEUMATOID FACTOR LAB Routine Bilateral hand pain 1 O ccurrences starting 06/29/2020 unti l 06/29/2021 STREPTOLYSIN O ANTIBODY LAB Routine Bilateral hand pa in 1 Occurrences starting (ASO) 06/29/2020 unti l 06/29/2021 Health Maintenance Due Date Last Done Comments [...] topic documented as of this encounter Results CBC WITH DIFF (06/29/2020 8:56 AM FOUNT[facility] P[facility]URNER) Pathologist Sig nature WBC 7.68 4.20 - 10.70 [facility] 10*3/L H[facility] RBC 4.45 4.26 - 5.52 [facility] 10*6/L [facility] HGB 12.4 12.2 - 16.4 [facility] g/dL [facility] HCT 35.6 (L) 38.4 - 49.3 % [facility] MCV 80.0 (L) 81.7 - 95.6 fL [facility] MCH 27.9 26.1 - 32.7 pg [facility] MCHC 34.8 31.2 - 35.0 [facility] g/dL [facility] RDW-SD 43.8 38.5 - 51.6 fL [facility] RDW-CV 15.2 12.1 - 15.4 % [facility] PLT 183 150 - 328 [facility] 10*3/L [facility] MPV 12.0 9.8 - 13.0 fL [facility] NRBC/100 WBC 0.0 0.0 - 10.0 /100 [facility] WBCs [facility] NRBC x10^3 <0.01 10*3/L [facility] GRAN MAT (NEUT) % 68.1 % [facility] IMM GRAN % 0.40 % [facility] LYMPH % 21.4 % [facility] MONO % 7.0 % [facility] EOS % 2.3 % [facility] BASO % 0.8 % [facility] GRAN MAT x10^3(ANC) 5.23 1.99 - 6.95 [facility] 10*3/uL HOSPITAL LAB[facility] IMM GRAN x10^3 0.03 0.00 - 0.06 [facility] 10*3/uL [facility]ITAL [facility] LYMPH x10^3 1.64 1.09 - 3.23 [facility] 10*3/uL H[facility]ITAL [facility] MONO x10^3 0.54 0.36 - 1.02 [facility] 10*3/uL HOSPITAL LAB[facility] EOS x10^3 0.18 0.06 - 0.53 [facility] 10*3/uL H[facility]PITAL [facility] BASO x10^3 0.06 0.01 - 0.09 [facility] 10*3/uL HOSPITAL LAB[facility] Specimen Blood Performing Organization Address [facility] Phone Number [facility] CLIA: [id number] [place] [address] URIC ACID (06/29/2020 8:56 AM [facility]) Pathologist Sig nature URIC ACID 7.1 3.6 - 8.0 mg/dL [facility] Specimen Blood Performing Organization Address [facility] Phone Number [facility] CLIA: [id number] [place] [address] SEDIMENTATION RATE (06/29/2020 8:56 AM FOUNT[facility] P[facility] TURNER) Pathologist Sig nature ESR 4 0 - 10 mm/HR [facility] Specimen Blood Performing Organization Address [facility] Phone Number [facility] CLIA: [id number] [place] [address] documented in this encounter Visit Diagnoses Diagnosis Bilateral hand pain - Primary Pain in limb documented in this encounter Insurance Payer Benefit Plan Subscriber ID Effective Dates Phone Address Type / Group [facility] [id number] 2019-Alisa [phone] [address] PPO/POS [place] - OUT OF t 7 [id number] [place] [address] documented as of this encounter
--- OUTSIDE RECORDS SUMMARY | 2020-08-14 21:23 | XMS REPORT | Summary of Care ---
:1970 Author Organization [facility] Address [address] [place] [address] Care Team Providers Name Role Phone Pcp, Patient Does Not Have A Primary Care Provider +1-000-00 0-0000 Reason for Visit Reason Comments New Patient Hand Pain bilateral hand pain Encounter Details Date Type Department Care Team Description 06/29/2020 Office Visit [facility] Orthopaedic Darnell Lyon ilateral hand pain Surgery- Shefali Maxwell MD (Primary Dx) [address], [address] [place] [address] [place] [address] [place], [place] [phone] [address] [phone] Allergies No Known Allergiesdocumented as of this [...] with No / Unsure 06/29/2020 7:58 AM CORE ANALYST someone who was confirmed or suspected to have Coronavirus / COVID-19? documented as of this encounter Last Filed Vital Signs Vital Sign Reading Time Taken Comments Blood Pressure 131/86 06/29/2020 8:06 AM CORE ANALYST Pulse 83 06/29/2020 8:06 AM CORE ANALYST Temperature - - Respiratory Rate - - Oxygen Saturation - - Inhaled Oxygen Concentration - - Weight 90.7 kg (200 lb) 06/29/2020 8:06 AM CORE ANALYST Height 167.6 cm (5' 6") 06/29/2020 8:06 AM CORE ANALYST Body Mass Index 32.28 06/29/2020 8:06 AM CORE ANALYST documented in this encounter Progress Notes Darnell [...] file Gets together: Not on file Attends orthodox service: Not on file Active member of [...] Visit Orthopedic Surgery Vipul Finn S, PAC [address] [place] [phone] Name Type Priority Associated Diagnoses Date/Ti me ANTI-NUCLEAR ANTIBODY LAB Routine Bilateral hand pain 06/29/2020 8:56 AM CORE ANALYST SCREEN C-REACTIVE PROTEIN LAB Routine Bilateral hand pain 8:56 AM CORE ANALYST RHEUMATOID FACTOR LAB Routine Bilateral hand pain 8:56 AM CORE ANALYST STREPTOLYSIN O ANTIBODY LAB Routine Bilateral hand pa in 06/29/2020 8:56 AM CORE ANALYST (ASO) Name Type Priority Associated Diagnoses Order [...] Results CBC WITH DIFF (06/29/2020 8:56 AM CORE ANALYST) Pathologist Sig nature WBC 7.68 4.20 - 10.70 [facility] 10*3/L H[facility]PITAL [facility] RBC 4.45 4.26 - 5.52 [facility] 10*6/L [facility]ITAL [facility] HGB 12.4 12.2 - 16.4 [facility] g/dL [facility] HCT 35.6 (L) 38.4 - 49.3 % [facility] MCV 80.0 (L) 81.7 - 95.6 fL [facility] MCH 27.9 26.1 - 32.7 pg [facility] MCHC 34.8 31.2 - 35.0 [facility] g/dL [facility] RDW-SD 43.8 38.5 - 51.6 fL [facility] RDW-CV 15.2 12.1 - 15.4 % [facility] PLT 183 150 - 328 [facility] 10*3/L [facility] MPV 12.0 9.8 - 13.0 fL [facility] NRBC/100 WBC 0.0 0.0 - 10.0 /100 [facility] WBCs [facility] NRBC x10^3 <0.01 10*3/L [facility] GRAN MAT (NEUT) % 68.1 % [facility] IMM GRAN % 0.40 % [facility] LYMPH % 21.4 % [facility] MONO % 7.0 % [facility] EOS % 2.3 % [facility] BASO % 0.8 % [facility] GRAN MAT x10^3(ANC) 5.23 1.99 - 6.95 [facility] 10*3/uL HOSPITAL LAB[facility] IMM GRAN x10^3 0.03 0.00 - 0.06 [facility] 10*3/uL [facility]ITAL [facility] LYMPH x10^3 1.64 1.09 - 3.23 [facility] 10*3/uL [facility]ITAL [facility] MONO x10^3 0.54 0.36 - 1.02 [facility] 10*3/uL H[facility]PITAL [facility] EOS x10^3 0.18 0.06 - 0.53 [facility] 10*3/uL [facility]ITAL [facility] BASO x10^3 0.06 0.01 - 0.09 [facility] 10*3/uL HOSPITAL [facility] Specimen Blood Performing Organization Address [facility] Phone Number [facility] CLIA: [id number] [place] [address] URIC ACID (06/29/2020 8:56 AM CORE ANALYST) Pathologist Sig nature URIC ACID 7.1 3.6 - 8.0 mg/dL [facility] Specimen Blood Performing Organization Address [facility] Phone Number [facility] CLIA: [id number] [place] [address] SEDIMENTATION RATE (06/29/2020 8:56 AM CORE ANALYST) Pathologist Sig nature ESR 4 0 - 10 mm/HR [facility] Specimen Blood Performing Organization Address [facility] Phone Number [facility] CLIA: [id number] [place] [address] documented in this encounter Visit Diagnoses Diagnosis Bilateral hand pain - Primary Pain in limb documented in this encounter Insurance Payer Benefit Plan Subscriber ID Effective Dates Phone Address Type / Group [facility] [id number] 2019-Alisa [phone] [address] PPO/POS [place] - OUT OF t 7 [id number] [place] [address] documented as of this encounter
--- OUTSIDE RECORDS SUMMARY | 2020-08-14 21:24 | XMS REPORT | Summary of Care ---
:1970 Author Organization [facility] Address [address] [place] [address] Care Team Providers Name Role Phone Pcp, Patient Does Not Have A Primary Care Provider +1-000-00 0-0000 Reason for Referral (Routine) Status Reason Specialty Diagnoses / Referred By Referred To Procedures Contact Contact New Request Electroneurodiagnostic Diagnoses Bilateral hand pain Vipul Finn Emg/Ncv Procedures EMGNCV S, PAC Procedures-Jsa [address] [address] [place] Phone: [phone] Phone: Reason for Visit Reason Comments Follow-up Results BW Encounter Details Date Type Department Care Team Description 07/04/2020 Office Visit [facility] Orthopaedic Vipul Finn S, B ilateral hand pain Surgery- [place] PAC (Primary Dx) [address] [facility] [place] [address] [address] [place] [phone] Allergies No Known Allergiesdocumented as of this encounter (statuses as of 07/04/2020) Medications Medication Sig Dispensed Refills Start Date [...] as of this encounter (statuses as of 07/04/2020) Active Problems Not on filedocumented as of this encounter (statuses as of 07/04/2020) Social History Tobacco Use Types Packs/Day Years Used Date Current Some Day Smoker Smokeless Tobacco: Never Used Sex Assigned at Date Recorded Not on file COVID-19 Exposure Response Date Recorded In the last month, have you been in contact with No / Unsure 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 Here for follow-up on bilateral hand pain with lab results. Performs repetitive tasks with risk flexion extension and has had numbness in the middle and ring fingers of his left hand. He has been wearing a wrist brace at nighttime it helps from getting his numb. Hand Pain The incident occurred more than [...] symptoms. The treatment provided no relief. Allergies Rachel has No Known Allergies. Medications Outpatient Medications [...] file Gets together: Not on file Attends anglican service: Not on file Active member of [...] Psychiatric/Behavioral: Negative. Endocrine: Endocrine negative Vital Signs Vitals: 07/04/20 0812 BP: 128/83 Pulse: 81 Weight: 90.7 kg (200 lb) Height: 66" (167.6 cm) Physical Exam Results for RACHEL FORD ( ) as of 07/04/2020 08:23 Ref. Range 06/29/2020 08:56 WBC x10^3 Latest Ref Range: 4.20 - 10.70 10*3/L 7.68 RBC x10^6 Latest Ref Range: 4.26 - 5.52 10*6/L 4.45 HGB Latest Ref Range: 12.2 - 16.4 g/dL 12.4 HCT Latest Ref Range: 38.4 - 49.3 % 35.6 (L) MCV Latest Ref Range: 81.7 - 95.6 fL 80.0 (L) MCH Latest Ref Range: 26.1 - 32.7 pg 27.9 MCHC Latest Ref Range: 31.2 - 35.0 g/dL 34.8 RDW-SD Latest Ref Range: 38.5 - 51.6 fL 43.8 RDW-CV Latest Ref Range: 12.1 - 15.4 % 15.2 PLT x10^3 Latest Ref Range: 150 - 328 10*3/L 183 MPV Latest Ref Range: 9.8 - 13.0 fL 12.0 NRBC /100 WBC Latest Ref Range: 0.0 - 10.0 /100 WBCs 0.0 NRBC x10^3 Latest Units: 10*3/L <0.01 GRAN MAT (NEUT) % Latest Units: % 68.1 IMM GRAN % Latest Units: % 0.40 LYMPH% Latest Units: % 21.4 MONO % Latest Units: % 7.0 EOS % Latest Units: % 2.3 BASO % Latest Units: % 0.8 GRAN MAT x10^3(ANC) Latest Ref Range: 1.99 - 6.95 10*3/uL 5.23 IMM GRAN x10^3 Latest Ref Range: 0.00 - 0.06 10*3/uL 0.03 LYMPH x10^3 Latest Ref Range: 1.09 - 3.23 10*3/uL 1.64 MONO x10^3 Latest Ref Range: 0.36 - 1.02 10*3/uL 0.54 EOS x10^3 Latest Ref Range: 0.06 - 0.53 10*3/uL 0.18 BASO x10^3 Latest Ref Range: 0.01 - 0.09 10*3/uL 0.06 SED RATE Latest Ref Range: 0 - 10 mm/HR 4 URIC ACID Latest Ref Range: 3.6 - 8.0 mg/dL 7.1 CRP Latest Ref Range: <0.8 mg/dL 0.9 (H) RF Latest Ref Range: <20 IU/mL <20 TAMIA Latest Ref Range: Negative Negative ASO Latest Ref Range: 0 - 330 IU/mL 59 Assessment/Plan 1. Bilateral hand pain He has signs of carpal tunnel syndrome and bilateral hands in order was put in for a nerve conduction study He can have a release to return to full duty he should use his wrist brace is much as possible. documented in this encounter Plan of Treatment Name Type Priority Associated Diagnoses Order S chedule EMGNCV EMG Routine Bilateral hand pain Expected : 07/18/2020, Expires: 01/08/2021 Health Maintenance Due Date Last Done Comments PNEUMOCOCCAL 0-64 YEARS COMBINED SERIES (1 of - 12/15/1975 PPSV23) Depression Screening 1981 DTaP,Tdap,and Td Vaccines (1 - Tdap) 1988 COLON CANCER SCREENING ANNUAL FIT/FOBT 12/15/2019 COLON CANCER SCREENING FIT DNA EVERY 3 YEARS 12/15/2019 COLON CANCER SCREENING SIGMOIDOSCOPY EVERY 5 YEARS 12/15/2019 COLONOSCOPY 12/15/2019 Colorectal Cancer Screening 12/15/2019 Zoster Recombinant Vaccine (SHINGRIX) (1 of 2) 12/15/2019 INFLUENZA VACCINE (#1) 2020 documented as of this encounter Results Not on filedocumented in this encounter Visit Diagnoses Diagnosis Bilateral hand pain - Primary Pain in limb documented in this encounter Insurance Payer Benefit Plan Subscriber ID Effective Dates Phone Address Type / Group BCBS OF [facility] [id number] 2019-Alisa [phone] [address] PPO/POS [place] - OUT OF t 7 [id number] [place] [address] documented as of this encounter
--- OUTSIDE RECORDS SUMMARY | 2020-08-14 21:24 | XMS REPORT | Summary of Care ---
:1970 Author Organization [facility] Address [address] [place] [address] Care Team Providers Name Role Phone Pcp, Patient Does Not Have A Primary Care Provider +1-000-00 0-0000 Encounter Details Date Type Department Care Team Description 06/29/2020 Orders Only [facility] Doctor Unassigned, No [address] [facility] [place] [address] [address] [place] [address] Allergies No Known Allergiesdocumented as of this [...] with No / Unsure 07/04/2020 8:07 AM PICK OUT HAND someone who was confirmed or suspected to have Coronavirus / COVID-19? documented as of this encounter Last Filed Vital Signs Not on filedocumented in this encounter Plan of Treatment Health Maintenance Due Date Last Done Comments PNEUMOCOCCAL 0-64 YEARS COMBINED SERIES (1 of 1 - 12/15/1975 PPSV23) Depression Screening 1981 DTaP,Tdap,and Td Vaccines (1 - Tdap) 1988 COLON CANCER SCREENING ANNUAL FIT/FOBT 12/15/2019 COLON CANCER SCREENING FIT DNA EVERY 3 YEARS 12/15/2019 COLON CANCER SCREENING SIGMOIDOSCOPY EVERY 5 YEARS 12/15/2019 COLONOSCOPY 12/15/2019 Colorectal Cancer Screening 12/15/2019 Zoster Recombinant Vaccine (SHINGRIX) (1 of 2) 12/15/2019 INFLUENZA VACCINE (#1) 2020 documented as of this encounter Procedures Procedure Name Priority Date/Time Associated Diagnosis Comme nts MEDICAL Routine 06/29/2020 12:01 AM PICK OUT HAND RELEASE/CLEARANCE FORMS documented in this encounter Results Not on filedocumented in this encounter Insurance Payer Benefit Plan Subscriber ID Effective Dates Phone Address Type / Group BCBS OF [facility] [id number] 2019-Alisa [phone] [address] PPO/POS [place] - OUT OF t 7 [id number] [place] [address] documented as of this encounter
--- OUTSIDE RECORDS SUMMARY | 2020-08-14 21:24 | XMS REPORT | Summary of Care ---
:1970 Author Organization [facility] Address [address] [place] [address] Care Team Providers Name Role Phone Pcp, Patient Does Not Have A Primary Care Provider +1-000-00 0-0000 Reason for Referral (Routine) Status Reason Specialty Diagnoses / Referred By Referred To Procedures Contact Contact New Request Electroneurodiagnostic Diagnoses Bilateral hand pain Vipul Finn Emg/Ncv Procedures EMGNCV S, PAC Procedures-Jsa [address] [address] [place], [place] Phone: [phone] Phone: Reason for Visit Reason Comments Follow-up Results BW Encounter Details Date Type Department Care Team Description 07/04/2020 Office Visit [facility] Orthopaedic Vipul Finn S, B ilateral hand pain Surgery- [place] PAC (Primary Dx) [address] [facility] [place] [address] [address] [place], [place] [phone] Allergies No Known Allergiesdocumented as of [...] with No / Unsure 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 BACKER Pulse 81 07/04/2020 8:12 AM ROUNDER AND BACKER Temperature - - Respiratory Rate - - Oxygen Saturation - - Inhaled Oxygen Concentration - - Weight 90.7 kg (200 lb) 07/04/2020 8:12 AM ROUNDER AND BACKER Height 167.6 cm (5' 6") 07/04/2020 8:12 AM ROUNDER AND BACKER Body Mass Index 32.28 07/04/2020 8:12 AM ROUNDER AND BACKER documented in this encounter Progress Notes Vipul [...] file Gets together: Not on file Attends pentecostalism service: Not on file Active member of [...] Phone Address Type / Group BCBS OF [facility] [id number] 2019-Alisa [phone] [address] PPO/POS [place] - OUT OF t 7 [id number] [place] [address] documented as of this encounter
--- NOTE | 2020-08-14 23:30 | EDPHYS ---
Physician Documentation [facility] Name: Santos Thurman Jr Age: 49 yrs Sex: Male : 1970 Arrival Date: 08/14/2020 Time: 21:24 Bed 24 Private MD: ED Physician Abraham Otto HPI: 08/15 00:39 This 49 yrs old Black Male presents to ER via Ambulatory with complaints of hand pain. kb 00:39 The patient or guardian reports decreased range of motion, pain. The complaints affect kb the right hand diffusely. Context: The problem was sustained at work, resulted from a chronic condition. Onset: The symptoms/episode began/occurred just prior to arrival. Modifying factors: The symptoms are alleviated by nothing, the symptoms are aggravated by movement. Associated signs and symptoms: The patient has no apparent associated signs or symptoms. Severity of symptoms: At their worst the symptoms were moderate, in the emergency department the symptoms are unchanged. The patient has experienced similar episodes in the past, several times. The patient has not recently seen a physician. Pt states he has carpal tunnel and today it flared up. States he was working and on the last tire his hand cramped up on him. States he has had this multiple times in each hand over the last 4 or 5 months. Has an appt with a hand surgeon soon.. Historical: - Allergies: 08/14 21:30 No Known Allergies; ca1 - Home Meds: 21:30 None [Active]; ca1 - PMHx: 21:30 Sickle Cell Trait; ca1 - PSHx: 21:30 None; ca1 - Immunization history:: Flu vaccine is not up to date. - Social history:: Smoking status: Patient reports the use of cigarette tobacco products, denies chronic smoking, but will smoke occasionally. ROS: 08/15 00:37 Constitutional: Negative for fever, chills, and weight loss, Skin: Negative for injury, kb rash, and discoloration, Neuro: Negative for headache, weakness, numbness, tingling, and seizure. MS/extremity: Positive for decreased range of motion, pain, of the right hand. Exam: 00:37 Constitutional: This is a well developed, well nourished patient who is awake, alert, kb and in no acute distress. Head/Face: Normocephalic, atraumatic. Skin: Warm, dry with normal turgor. Normal color with no rashes, no lesions, and no evidence of cellulitis. Neuro: Awake and alert, GCS 15, oriented to person, place, time, and situation. Cranial nerves II-XII grossly intact. Motor strength 5/5 in all extremities. Sensory grossly intact. Cerebellar exam normal. Normal gait. 00:37 Musculoskeletal/extremity: Extremities: grossly normal except: noted in the right hand: decreased ROM, pain, tenderness, ROM: limited active range of motion due to pain, Circulation is intact in all extremities. Sensation intact. Vital Signs: 08/14 21:28 BP 131 / 88; Pulse 81; Resp 16 S; Temp 97.6(TE); Pulse Ox 98% on R/A; Weight 95.71 kg ca1 (R); Height 5 ft. 6 in. (167.64 cm) (R); Pain 10/10; 23:38 BP 129 / 95; Pulse 70; Resp 16; Pulse Ox 97% ; Pain 8/10; tl1 21:28 Body Mass Index 34.06 (95.71 kg, 167.64 cm) ca1 MDM: 23:08 Patient medically screened. kb 08/15 00:37 Data reviewed: vital signs, nurses notes. Data interpreted: Pulse oximetry: on room air kb is 97 %. Interpretation: normal. Counseling: I had a detailed discussion with the patient and/or guardian regarding: the historical points, exam findings, and any diagnostic results supporting the discharge/admit diagnosis, the need for outpatient follow up, a family practitioner, to return to the emergency department if symptoms worsen or persist or if there are any questions or concerns that arise at home. Administered Medications: 08/14 23:17 Drug: Gideon 10 mg-325 mg 1 tabs Route: PO; tl1 23:37 Follow up: Response: No adverse reaction; No change in condition tl1 23:37 Drug: predniSONE 60 mg Route: PO; tl1 23:38 Follow up: Response: No adverse reaction; No change in condition; Medication tl1 administered at discharge. Disposition: 08/15 01:34 Co-signature as Attending Physician, Abraham Otto MD. rn Disposition: 08/14/20 23:37 Discharged to Home. Impression: Carpal tunnel syndrome, right upper limb. - Condition is Stable. - Discharge Instructions: Carpal Tunnel Syndrome, [id number]-wi-[id number]. - Prescriptions for Medrol (David) 4 mg Oral Tablets, Dose Pack - take 1 tablet by ORAL route as directed - follow package instructions; 1 packet. - Medication Reconciliation Form, Thank You Letter, Antibiotic Education, Prescription Opioid Use form. - Follow up: Emergency Department; When: As needed; Reason: Worsening of condition. Follow up: Private Physician; When: 2 - 3 days; Reason: Recheck today's complaints, Continuance of care, Re-evaluation by your physician. Signatures: Julita Casper, TAXI SERVICER-C TAXI SERVICER-CkAbraham Szymanski MD MD rn Jessica Donovan RN RN tl1 Rose Marie Alberto RN Rain Pate RN RN zb Corrections: (The following items were deleted from the chart) 08/14 23:32 23:29 08/14/2020 23:29 Discharged to Home. Impression: Carpal tunnel syndrome, right kb upper limb. Condition is Stable. Discharge Instructions: Carpal Tunnel Syndrome, Qhja-ja-Ezyd. Forms are Medication Reconciliation Form, Thank You Letter, Antibiotic Education, Prescription Opioid Use. Follow up: Emergency Department; When: As needed; Reason: Worsening of condition. Follow up: Private Physician; When: 2 - 3 days; Reason: Recheck today's complaints, Continuance of care, Re-evaluation by your physician. kb 23:50 23:37 08/14/2020 23:37 Discharged to Home. Impression: Carpal tunnel syndrome, right zb upper limb. Condition is Stable. Discharge Instructions: Carpal Tunnel Syndrome, [id number]. Prescriptions for Mobic 7.5 mg Oral Tablet - take 1 tablet by ORAL route once daily take with food; 20 tablet, Medrol (David) 4 mg Oral Tablets, Dose Pack - take 1 tablet by ORAL route as directed - follow package instructions; 1 packet. and Forms are Medication Reconciliation Form, Thank You Letter, Antibiotic Education, Prescription Opioid Use. Follow up: Emergency Department; When: As needed; Reason: Worsening of condition. Follow up: Private Physician; When: 2 - 3 days; Reason: Recheck today's complaints, Continuance of care, Re-evaluation by your physician. kb
--- NOTE | 2020-08-14 23:30 | ER ---
Nurse's Notes [facility] Name: Santos Thurman Jr Age: 49 yrs Sex: Male : 1970 Arrival Date: 08/14/2020 Time: 21:24 Bed 24 Private MD: Diagnosis: Carpal tunnel syndrome, right upper limb Presentation: 08/14 21:28 Chief complaint: Patient states: was moving a door,when suddenly my hand just locked, I ca1 can barely move my fingers and they hurt like they're on fire. I have an appointment to see a hand doctor soon. C/O of R hand pain, stiffness since 1800 today. Coronavirus screen: Client denies travel out of the [place] in the last 14 days. At this time, the client does not indicate any symptoms associated with coronavirus-19. Ebola Screen: Patient negative for fever greater than or equal to 101.5 degrees Fahrenheit, and additional compatible Ebola Virus Disease symptoms Patient denies exposure to infectious person. Patient denies travel to an Ebola-affected area in the 21 days before illness onset. No symptoms or risks identified at this time. Initial Sepsis Screen: Does the patient meet any 2 criteria? No. Patient's initial sepsis screen is negative. Does the patient have a suspected source of infection? No. Patient's initial sepsis screen is negative. Risk Assessment: Do you want to hurt yourself or someone else? Patient reports no desire to harm self or others. Onset of symptoms was August 14, 2020. 21:28 Method Of Arrival: Ambulatory ca1 21:28 Acuity: JASMINE 4 ca1 Historical: - Allergies: 21:30 No Known Allergies; ca1 - Home Meds: 21:30 None [Active]; ca1 - PMHx: 21:30 Sickle Cell Trait; ca1 - PSHx: 21:30 None; ca1 - Immunization history:: Flu vaccine is not up to date. - Social history:: Smoking status: Patient reports the use of cigarette tobacco products, denies chronic smoking, but will smoke occasionally. Screenin:13 Abuse screen: Denies threats or abuse. Denies injuries from another. Nutritional tl1 screening: No deficits noted. Tuberculosis screening: No symptoms or risk factors identified. Fall Risk None identified. Assessment: 21:39 Reassessment: will be waiting in the car. Please call [phone]. ca1 23:11 General: Appears in no apparent distress. uncomfortable, Behavior is calm, cooperative, tl1 appropriate for age. Pain: Complains of pain in right hand. Neuro: Level of Consciousness is awake, alert, obeys commands. Cardiovascular: Denies chest pain. Respiratory: Airway is patent. GI: No deficits noted. : No signs and/or symptoms were reported regarding the genitourinary system. EENT: No signs and/or symptoms were reported regarding the EENT system. Musculoskeletal: Reports pain in right hand since pt states he was moving doors earlier today and on his way home his hand became stiff and painful. Injury Description: denies injury. 23:49 Reassessment: d/c instructions given gait steady and even. in care awaiting zb patient. Vital Signs: 21:28 BP 131 / 88; Pulse 81; Resp 16 S; Temp 97.6(TE); Pulse Ox 98% on R/A; Weight 95.71 kg ca1 (R); Height 5 ft. 6 in. (167.64 cm) (R); Pain 10/10; 23:38 BP 129 / 95; Pulse 70; Resp 16; Pulse Ox 97% ; Pain 8/10; tl1 21:28 Body Mass Index 34.06 (95.71 kg, 167.64 cm) ca1 ED Course: 21:24 Patient arrived in ED. am2 21:30 Triage completed. ca1 21:30 Arm band placed on right wrist. ca1 23:08 Julita Casper [facility]NP-C [facility] kb 23:08 Abraham Otto MD is Attending Physician. kb 23:15 Rain Davis, SHANEL is Primary Nurse. zb 23:17 No provider procedures requiring assistance completed. Patient did not have IV access tl1 during this emergency room visit. 23:50 Patient has correct armband on for positive identification. Pulse ox on. NIBP on. zb Administered Medications: 23:17 Drug: Lincoln 10 mg-325 mg 1 tabs Route: PO; tl1 23:37 Follow up: Response: No adverse reaction; No change in condition tl1 23:37 Drug: predniSONE 60 mg Route: PO; tl1 23:38 Follow up: Response: No adverse reaction; No change in condition; Medication tl1 administered at discharge. Outcome: 23:29 Discharge ordered by . sejal 23:37 Discharge ordered by . sejal 23:50 Discharged to home ambulatory. zb 23:50 Condition: stable 23:50 Discharge instructions given to patient, Instructed on discharge instructions, follow up and referral plans. medication usage, Demonstrated understanding of instructions, follow-up care, medications, Prescriptions given X 1. 23:50 Patient left the ED. zb Signatures: Julita Casper FNP-C VIANNEY-Jessica Viveros, RN RN tl1 Phyllis Martines Cheryl, RN RN ca1 Rain Davis RN RN zb
[2020-08-14] MEDS ORDERED: HYDROCODONE/APAP 10/325 TAB ONE (23:32)
[2020-08-14] MEDS ORDERED: predniSONE 20 MG TAB ONE (23:50)
[2020-08-15 04:27] VITALS: TEMP 97.6
[2020-08-15 04:28] VITALS: BP 129/95; O2SAT 97
== END 2020-08-14 23:50 | disposition home or self-care (01) ==
LOC: ER 21:20
DX: G56.01 Carpal tunnel syndrome, right upper limb (principal); F17.210 Nicotine dependence, cigarettes, uncomplicated
CPT/HCPCS: 99283; J7512

== ENCOUNTER 2023-04-28 12:45 | Emergency (ER) | payer OTHER ==
--- OUTSIDE RECORDS SUMMARY | 2023-04-28 12:47 | XMS REPORT | Continuity of Care Document ---
:1970 Author Organization [facility] t Address [address] [place] [address] [place] [id number] Care Team Providers Name Role Phone PCP, PATIENT DOES NOT HAVE A Primary Care Physician Darnell Nation MD Attending Clinician DARNELL LYON Attending Clinician Unavailable 2, Ad[facility] Lab Attending Clinician Unavailable VIPUL FINN Attending Clinician Unavailable Vipul Sanon Attending Clinician Doctor Unassigned, [place] Attending Clinician Unavailable Payers Payer Name Policy Type Policy Number Effective Date Expiration Date S ource Problems Condition Condition Condition Status Onset Resolution Last Treating Co mments Source Name Details Category Date Date Treatment Clinician Date No known No known Disease Unive rs active active ity of problems problems [facility] Allergies, Adverse Reactions, Alerts Allergy Allergy Status Severity Reaction(s) Onset Inactive Treating Comm ents Source Name Type Date Date Clinician NO KNOWN Drug Active Univers ALLERGIE Class ity of S [facility] Social History Social Habit Start Date Stop Date Quantity Comments Source Exposure to Not sure [facility] SARS-CoV-2 (event) Medica l Branch Tobacco use and 2020-09-28 2020-09-28 Never used [facility] exposure 00:00:00 00:00:00 [facility] Sex Ass[birth year] [facility] 00:00:00 00:00:00 [facility] Smoking Status Start Date Stop Date Source Current some day smoker 2020-09-28 [facility] Ordered Filled Start Stop Current Ordering Indication Dosage Frequency Signature Comments Components Source Medication Medication Date Date Medication? Clinician (SIG) Name Name meloxicam 2020- Yes TAKE 1 Univer s 7.5 mg 2-02 TABLET BY ity of tablet 00:00: MOUTH [place] 00 EVERY DAY Medical WITH [facility] meloxicam 2020-1 Yes TAKE 1 Univer s 7.5 mg 2-02 TABLET BY ity of tablet 00:00: MOUTH [place] 00 EVERY DAY Medical WITH [facility] meloxicam 2020-1 Yes TAKE 1 Univer s 7.5 mg 2-02 TABLET BY ity of tablet 00:00: MOUTH [place] 00 EVERY DAY Medical WITH [facility] meloxicam 2020-1 Yes TAKE 1 Univer s 7.5 mg 2-02 TABLET BY ity of tablet 00:00: MOUTH [place] 00 EVERY DAY Medical WITH [facility] meloxicam 2020- Yes TAKE 1 Univer s 7.5 mg 2-02 TABLET BY ity of tablet 00:00: MOUTH [place] 00 EVERY DAY Medical WITH [facility] meloxicam 2020- Yes TAKE 1 Univer s 7.5 mg 2-02 TABLET BY ity of tablet 00:00: MOUTH [place] 00 EVERY DAY Medical WITH [facility] meloxicam 2020-1 Yes TAKE 1 Univer s 7.5 mg 2-02 TABLET BY ity of tablet 00:00: MOUTH [place] 00 EVERY DAY Medical WITH [facility] meloxicam 2020-1 Yes TAKE 1 Univer s 7.5 mg 2-02 TABLET BY ity of tablet 00:00: MOUTH [place] 00 EVERY DAY Medical WITH [facility] meloxicam 2020-1 Yes TAKE 1 Univer s 7.5 mg 2-02 TABLET BY ity of tablet 00:00: MOUTH [place] 00 EVERY DAY Medical WITH [facility] meloxicam 2020-1 Yes TAKE 1 Univer s 7.5 mg 2-02 TABLET BY ity of tablet 00:00: MOUTH [place] 00 EVERY DAY Medical WITH [facility] meloxicam 2020-1 Yes TAKE 1 Univer s 7.5 mg 2-02 TABLET BY ity of tablet 00:00: MOUTH [place] 00 EVERY DAY Medical WITH [facility] meloxicam 2020-1 Yes TAKE 1 Univer s 7.5 mg 2-02 TABLET BY ity of tablet 00:00: MOUTH [place] 00 EVERY DAY Medical WITH [facility] acetaminoph 2020-1 Yes TAKE 2 Univ ers en-codeine 1-04 TABLETS BY ity of 300-30 mg 00:00: MOUTH [place] tablet 00 EVERY 6 Medical HOURS Branch NEEDED FOR PAIN ibuprofen 2019-07 Yes TAKE 1 Univer s 600 mg 1-04 TABLET BY ity of tablet 00:00: MOUTH [place] 00 EVERY 6 Medical HOURS Branch NEEDED FOR PAIN TAKE WITH FOOD acetaminoph 2019-07 Yes TAKE 2 Univ ers en-codeine 1-04 TABLETS BY ity of 300-30 mg 00:00: MOUTH [place] tablet 00 EVERY 6 Medical HOURS Branch NEEDED FOR PAIN ibuprofen 2019-07 Yes TAKE 1 Univer s 600 mg 1-04 TABLET BY ity of tablet 00:00: MOUTH [place] 00 EVERY 6 Medical HOURS Branch NEEDED FOR PAIN TAKE WITH FOOD acetaminoph 2019-07 Yes TAKE 2 Univ ers en-codeine 1-04 TABLETS BY ity of 300-30 mg 00:00: MOUTH [place] tablet 00 EVERY 6 Medical HOURS Branch NEEDED FOR PAIN ibuprofen 2019-07 Yes TAKE 1 Univer s 600 mg 1-04 TABLET BY ity of tablet 00:00: MOUTH [place] 00 EVERY 6 Medical HOURS Branch NEEDED FOR PAIN TAKE WITH FOOD acetaminoph 2019-07 Yes TAKE 2 Univ ers en-codeine 1-04 TABLETS BY ity of 300-30 mg 00:00: MOUTH [place] tablet 00 EVERY 6 Medical HOURS Branch NEEDED FOR PAIN ibuprofen 2019-07 Yes TAKE 1 Univer s 600 mg 1-04 TABLET BY ity of tablet 00:00: MOUTH [place] 00 EVERY 6 Medical HOURS Branch NEEDED FOR PAIN TAKE WITH FOOD acetaminoph 2019-07 Yes TAKE 2 Univ ers en-codeine 1-04 TABLETS BY ity of 300-30 mg 00:00: MOUTH [place] tablet 00 EVERY 6 Medical HOURS Branch NEEDED FOR PAIN ibuprofen 2019-07 Yes TAKE 1 Univer s 600 mg 1-04 TABLET BY ity of tablet 00:00: MOUTH [place] 00 EVERY 6 Medical HOURS Branch NEEDED FOR PAIN TAKE WITH FOOD acetaminoph 2019-07 Yes TAKE 2 Univ ers en-codeine 1-04 TABLETS BY ity of 300-30 mg 00:00: MOUTH [place] tablet 00 EVERY 6 Medical HOURS Branch NEEDED FOR PAIN ibuprofen 2019-07 Yes TAKE 1 Univer s 600 mg 1-04 TABLET BY ity of tablet 00:00: MOUTH [place] 00 EVERY 6 Medical HOURS Branch NEEDED FOR PAIN TAKE WITH FOOD acetaminoph 2019-07 Yes TAKE 2 Univ ers en-codeine 1-04 TABLETS BY ity of 300-30 mg 00:00: MOUTH [place] tablet 00 EVERY 6 Medical HOURS Branch NEEDED FOR PAIN ibuprofen 2019-07 Yes TAKE 1 Univer s 600 mg 1-04 TABLET BY ity of tablet 00:00: MOUTH [place] 00 EVERY 6 Medical HOURS Branch NEEDED FOR PAIN TAKE WITH FOOD acetaminoph 2019-07 Yes TAKE 2 Univ ers en-codeine 1-04 TABLETS BY ity of 300-30 mg 00:00: MOUTH [place] tablet 00 EVERY 6 Medical HOURS Branch NEEDED FOR PAIN ibuprofen 2019-07 Yes TAKE 1 Univer s 600 mg 1-04 TABLET BY ity of tablet 00:00: MOUTH [place] 00 EVERY 6 Medical HOURS Branch NEEDED FOR PAIN TAKE WITH FOOD acetaminoph 2019-07 Yes TAKE 2 Univ ers en-codeine 1-04 TABLETS BY ity of 300-30 mg 00:00: MOUTH [place] tablet 00 EVERY 6 Medical HOURS Branch NEEDED FOR PAIN ibuprofen 2019-07 Yes TAKE 1 Univer s 600 mg 1-04 TABLET BY ity of tablet 00:00: MOUTH [place] 00 EVERY 6 Medical HOURS Branch NEEDED FOR PAIN TAKE WITH FOOD acetaminoph 2019-07 Yes TAKE 2 Univ ers en-codeine 1-04 TABLETS BY ity of 300-30 mg 00:00: MOUTH [place] tablet 00 EVERY 6 Medical HOURS Branch NEEDED FOR PAIN ibuprofen 2019-07 Yes TAKE 1 Univer s 600 mg 1-04 TABLET BY ity of tablet 00:00: MOUTH [place] 00 EVERY 6 Medical HOURS Branch NEEDED FOR PAIN TAKE WITH FOOD acetaminoph 2019-07 Yes TAKE 2 Univ ers en-codeine 1-04 TABLETS BY ity of 300-30 mg 00:00: MOUTH [place] tablet 00 EVERY 6 Medical HOURS Branch NEEDED FOR PAIN ibuprofen 2019-07 Yes TAKE 1 Univer s 600 mg 1-04 TABLET BY ity of tablet 00:00: MOUTH [place] 00 EVERY 6 Medical HOURS Branch NEEDED FOR PAIN TAKE WITH FOOD acetaminoph 2019-07 Yes TAKE 2 Univ ers en-codeine 1-04 TABLETS BY ity of 300-30 mg 00:00: MOUTH [place] tablet 00 EVERY 6 Medical HOURS Branch NEEDED FOR PAIN ibuprofen 2019-07 Yes TAKE 1 Univer s 600 mg 1-04 TABLET BY ity of tablet 00:00: MOUTH [place] 00 EVERY 6 Medical HOURS Branch NEEDED FOR PAIN TAKE WITH FOOD ferrous 2019- Yes 324mg Take 324 Unive rs sulfate 324 9-28 mg by ity of mg (65 mg 00:00: mouth [place] iron) EC 00 daily. Medical tablet Branch ferrous 2020-0 Yes 324mg Take 324 Unive rs sulfate 324 9-28 mg by ity of mg (65 mg 00:00: mouth [place] iron) EC 00 daily. Medical tablet Branch ferrous 2020-0 Yes 324mg Take 324 Unive rs sulfate 324 9-28 mg by ity of mg (65 mg 00:00: mouth [place] iron) EC 00 daily. Medical tablet Branch ferrous 2020-0 Yes 324mg Take 324 Unive rs sulfate 324 9-28 mg by ity of mg (65 mg 00:00: mouth [place] iron) EC 00 daily. Medical tablet Branch ferrous 2020-0 Yes 324mg Take 324 Unive rs sulfate 324 9-28 mg by ity of mg (65 mg 00:00: mouth [place] iron) EC 00 daily. Medical tablet Branch ferrous 2020-0 Yes 324mg Take 324 Unive rs sulfate 324 9-28 mg by ity of mg (65 mg 00:00: mouth [place] iron) EC 00 daily. Medical tablet Branch ferrous 2020-0 Yes 324mg Take 324 Unive rs sulfate 324 9-28 mg by ity of mg (65 mg 00:00: mouth [place] iron) EC 00 daily. Medical tablet Branch ferrous 2020-0 Yes 324mg Take 324 Unive rs sulfate 324 9-28 mg by ity of mg (65 mg 00:00: mouth [place] iron) EC 00 daily. Medical tablet Branch ferrous 2020-0 Yes 324mg Take 324 Unive rs sulfate 324 9-28 mg by ity of mg (65 mg 00:00: mouth [place] iron) EC 00 daily. Medical tablet Branch ferrous 2020-0 Yes 324mg Take 324 Unive rs sulfate 324 9-28 mg by ity of mg (65 mg 00:00: mouth [place] iron) EC 00 daily. Medical tablet Branch ferrous 2020-0 Yes 324mg Take 324 Unive rs sulfate 324 9-28 mg by ity of mg (65 mg 00:00: mouth [place] iron) EC 00 daily. Medical tablet Branch ferrous 2020-0 Yes 324mg Take 324 Unive rs sulfate 324 9-28 mg by ity of mg (65 mg 00:00: mouth [place] iron) EC 00 daily. Medical tablet Branch cyclobenzap 2020-0 Yes TAKE 1 Univ ers rine 10 mg 9-24 TABLET BY ity of tablet 00:00: MOUTH AT [place] 00 BEDTIME Medical NEEDED FOR Branch MUSCLE SPASMS cyclobenzap 2020-0 Yes TAKE 1 Univ ers rine 10 mg 9-24 TABLET BY ity of tablet 00:00: MOUTH AT [place] BEDTIME Medical NEEDED FOR Branch MUSCLE SPASMS cyclobenzap 2020-0 Yes TAKE 1 Univ ers rine 10 mg 9-24 TABLET BY ity of tablet 00:00: MOUTH AT [place] BEDTIME Medical NEEDED FOR Branch MUSCLE SPASMS cyclobenzap 2020-0 Yes TAKE 1 Univ ers rine 10 mg 9-24 TABLET BY ity of tablet 00:00: MOUTH AT [place] BEDTIME Medical NEEDED FOR Branch MUSCLE SPASMS cyclobenzap 2020-0 Yes TAKE 1 Univ ers rine 10 mg 9-24 TABLET BY ity of tablet 00:00: MOUTH AT [place] BEDTIME Medical NEEDED FOR Branch MUSCLE SPASMS cyclobenzap 2020-0 Yes TAKE 1 Univ ers rine 10 mg 9-24 TABLET BY ity of tablet 00:00: MOUTH AT [place] BEDTIME Medical NEEDED FOR Branch MUSCLE SPASMS cyclobenzap 2020-0 Yes TAKE 1 Univ ers rine 10 mg 9-24 TABLET BY ity of tablet 00:00: MOUTH AT [place] BEDTIME Medical NEEDED FOR Branch MUSCLE SPASMS cyclobenzap 2020-0 Yes TAKE 1 Univ ers rine 10 mg 9-24 TABLET BY ity of tablet 00:00: MOUTH AT [place] BEDTIME Medical NEEDED FOR Branch MUSCLE SPASMS cyclobenzap 2020-0 Yes TAKE 1 Univ ers rine 10 mg 9-24 TABLET BY ity of tablet 00:00: MOUTH AT [place] BEDTIME Medical NEEDED FOR Branch MUSCLE SPASMS cyclobenzap 2020-0 Yes TAKE 1 Univ ers rine 10 mg 9-24 TABLET BY ity of tablet 00:00: MOUTH AT [place] BEDTIME Medical NEEDED FOR Branch MUSCLE SPASMS cyclobenzap 2020-0 Yes TAKE 1 Univ ers rine 10 mg 9-24 TABLET BY ity of tablet 00:00: MOUTH AT [place] BEDTIME Medical NEEDED FOR Branch MUSCLE SPASMS cyclobenzap 2020-0 Yes TAKE 1 Univ ers rine 10 mg 9-24 TABLET BY ity of tablet 00:00: MOUTH AT [place] BEDTIME Medical NEEDED FOR Branch MUSCLE SPASMS methylPREDN 2020-0 Yes TAKE BY Uni vers ISolone 4 9-22 MOUTH ity of mg tablets 00:00: DIRECTED [place] 00 Medical Branch methylPREDN 2020-0 Yes TAKE BY Uni vers ISolone 4 9-22 MOUTH ity of mg tablets 00:00: DIRECTED [place] 00 Medical Branch methylPREDN 2020-0 Yes TAKE BY Uni vers ISolone 4 9-22 MOUTH ity of mg tablets 00:00: DIRECTED [place] 00 Medical Branch methylPREDN 2020-0 Yes TAKE BY Uni vers ISolone 4 9-22 MOUTH ity of mg tablets 00:00: DIRECTED [place] 00 Medical Branch methylPREDN 2020-0 Yes TAKE BY Uni vers ISolone 4 9-22 MOUTH ity of mg tablets 00:00: DIRECTED [place] 00 Medical Branch methylPREDN 2020-0 Yes TAKE BY Uni vers ISolone 4 9-22 MOUTH ity of mg tablets 00:00: DIRECTED [place] 00 Medical Branch methylPREDN 2020-0 Yes TAKE BY Uni vers ISolone 4 9-22 MOUTH ity of mg tablets 00:00: DIRECTED [place] 00 Medical Branch methylPREDN 2020-0 Yes TAKE BY Uni vers ISolone 4 9-22 MOUTH ity of mg tablets 00:00: DIRECTED [place] 00 Medical Branch methylPREDN 2020-0 Yes TAKE BY Uni vers ISolone 4 9-22 MOUTH ity of mg tablets 00:00: DIRECTED [place] 00 Medical Branch methylPREDN 2020-0 Yes TAKE BY Uni vers ISolone 4 9-22 MOUTH ity of mg tablets 00:00: DIRECTED [place] 00 Medical Branch methylPREDN 2020-0 Yes TAKE BY Uni vers ISolone 4 9-22 MOUTH ity of mg tablets 00:00: DIRECTED [place] 00 Medical Branch methylPREDN 2020-0 Yes TAKE BY Uni vers ISolone 4 9-22 MOUTH ity of mg tablets 00:00: DIRECTED [place] 00 Medical Branch Vital Signs Vital Name Observation Time Observation Value Comments Source Systolic blood 2020-09-28 13:13:00 127 mm[facility]Hg[facility] pressure [facility] Diastolic blood 2020-09-28 13:13:00 78 mm[Hg] [facility] pressure [facility] Body height 2020-09-28 13:08:00 167.6 cm [facility] Body weight 2020-09-28 13:08:00 90.719 kg [facility] BMI 2020-09-28 13:08:00 32.28 kg/m2 [facility] [place] [facility] Systolic blood 2020-07-04 14:12:00 128 mm[Hg] [facility] [place] pressure Medical Branch Diastolic blood 2020-07-04 14:12:00 83 mm[Hg] [facility] [place] pressure Medical Branch Heart rate 2020-07-04 14:12:00 81 /min [facility] [place] [facility] Body height 2020-07-04 14:12:00 167.6 cm [facility] [place] [facility] Body weight 2020-07-04 14:12:00 90.719 kg [facility] [place] [facility] BMI 2020-07-04 14:12:00 32.28 kg/m2 [facility] [place] [facility] Systolic blood 2020-07-04 14:12:00 128 mm[Hg] [facility] [place] pressure Medical Branch Diastolic blood 2020-07-04 14:12:00 83 mm[Hg] [facility] [place] pressure Medical Branch Heart rate 2020-07-04 14:12:00 81 /min [facility] [place] [facility] Body height 2020-07-04 14:12:00 167.6 cm [facility] [place] [facility] Body weight 2020-07-04 14:12:00 90.719 kg [facility] [place] [facility] BMI 2020-07-04 14:12:00 32.28 kg/m2 [facility] [place] [facility] Systolic blood 2020-06-29 14:06:00 131 mm[Hg] [facility] [place] pressure Medical Branch Diastolic blood 2020-06-29 14:06:00 86 mm[Hg] [facility] [place] pressure Medical Branch Heart rate 2020-06-29 14:06:00 83 /min [facility] [place] [facility] Body height 2020-06-29 14:06:00 167.6 cm [facility] [place] [facility] Body weight 2020-06-29 14:06:00 90.719 kg [facility] [place] [facility] BMI 2020-06-29 14:06:00 32.28 kg/m2 [facility] [place] [facility] Procedures Procedure Date / Time Performed Performing Clinician George e XR CHEST 1 VW 2020-09-28 14:43:21 Darnell Lyon [facility] [place] MEDICAL 2020-06-29 06:01:00 Doctor Unassigned, Ashley [facility] RELEASE/CLEARANCE Name Medical Branch FORMS Encounters Start End Encounter Admission Attending Care Care Encounter Source Date/Time Date/Time Type Type Clinicians Facility Department ID 2020-10-02 2020-10-02 Telephone Sonali [facility] [[email or web address] [id number] [id number] Univers 00:00:00 00:00:00 Darnell Reed [id number] it y of Surgical [id number] [place] Special[place] [phone] [place] [address] [facility] 2020-09-28 2020-09-28 [facility] [id number] Univers 09:08:58 23:59:00 Encounter Darnell Meehan [id number] [place]2.686 [place] [id number] [facility] [address] [place] [address] 2020-09-28 2020-09-28 [facility] [id number] Univers 09:08:58 23:59:00 DARNELL ity [facility] 2020-09-28 2020-09-28 Elevator Runner 2, Adc Lab [facility] [[email or web address]] [id number] Univers 08:51:51 09:06:51 Visit Darnell Lyon [id number] [place] [id number] [place]ical [place] [address] [facility] 2020-09-28 2020-09-28 [facility] [id number] [facility] 08:07:03 08:49:19 Visit Darnell Reed [id number] it y of Surgical [id number] [place] Special[place] [id number] [place] [address] [facility] 2020-09-28 2020-09-28 [facility] [id number] Univers 00:00:00 00:00:00 Darnell Reed [id number] it y of Surgical [id number] [place] Special[place] [id number] Me dical es [address] [facility] 2020-09-07 2020-09-07 Outpatient R [facility] [id number] Univers 14:00:00 14:00:00 [facility] 2020-07-04 2020-07-04 [facility] 1.2.840.114 [id number] 08:08:02 08:23:02 Visit [facility] [id number] Surgical 4.2.7.2.686 Specialti [id number] es [address] [place] [address] 2020-07-04 2020-07-04 Office [facility] 1.2.840.114 [id number] Univers 08:08:02 08:23:02 Visit [facility] [id number] it y of Surgical 4.2.7.2.686 [place] Special[place] [id number] [place] [address] [facility] 2020-07-04 2020-07-04 [facility] [id number] Univers 08:15:00 08:15:00 [facility] 2020-06-29 2020-06-29 Elevator Runner 2, Adc Lab [facility] [[email or web address]] 1.2.840.114 [id number] Univers 08:50:41 09:05:41 Visit Sonali Darnell Maxwell [place] [id number] [place].2.[place] [id number] [place] 353 [facility] 2020-06-29 2020-06-29 [facility] [id number] Univers 07:59:40 08:30:22 Visit Darnell Maxwell [facility] 350.1.13.10 it y of Surgical 4.2.7.2.686 [place] as Specialti [id number] Me dical es [address] [facility] 2020-06-29 2020-06-29 Outpatient [facility] [id number] Univers 08:00:00 08:00:00 [facility] 2020-06-29 2020-06-29 Orders Doctor SANTANA 1.2.840.114 [id number] 00:00:00 00:00:00 Only Unassigned, [place] 350.1.13.10 [facility] 4.2.7.2.686 [id number] 2020-06-29 2020-06-29 Orders Doctor ESTHER [id number] 00:00:00 00:00:00 Only Unassigned, [place] 350.1.13.10 [facility]y [facility] [place] [facility] 4.2.7.2.686 John as [id number] [facility] 009 Branch Results Test Test Test Results Result Source Description Time Comments Comments XR CHEST 1 VW 2020-09- [facility]: [facility] view of the [facility] 14:48:48 chest showed normal Branc h appearance of thecardiomediastinal silhouette. No acute pneumonia, pleural effusion,pulmonary congestion detected. CONCLUSIONS: Normal study. [facility], Radiant Results Inft User - 09/28/2020 9:49 AM CDTHISTORY: Preop.FINDINGS: PA view of the chest showed normal appearance of thecardiomediastinal silhouette. No acute pneumonia, pleural effusion,pulmonary congestion detected. CONCLUSIONS: Normal study.
[2023-04-28] MEDS ORDERED: DIAZEPAM 5 MG TABLET ONE (13:16)
[2023-04-28] MEDS ORDERED: HYDROCODONE/APAP 5/325 MG TAB ONE (13:16)
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
[2023-04-28 14:26] VITALS: BP 143/97; TEMP 98.3; O2SAT 100
== END 2023-04-28 13:59 | disposition home or self-care (01) ==
LOC: ER 12:45
DX: M54.50 Low back pain, unspecified (principal); V49.49XA Driver injured in collision with other motor vehicles in traffic accident, initial encounter
CPT/HCPCS: 72100; 99284